=== PATIENT | female | born 1935 | race Caucasian/White ===

== ENCOUNTER 2017-12-31 00:27 | Inpatient (IN) ==
[2017-12-31] MEDS ORDERED: DUONEB 0.5 MG/3 MG NEB ONE (00:34)
--- NOTE | 2017-12-31 00:36 | DR.SOBA ---
HPI Time Seen Time Seen by Provider: 12/31/17 00:31 Complaints Chief Complaint:: Elderly female NH resident sent over to the ED for evaluation as she was noted in respiratory distress. Her O2 sat was reported in 80's. Upon arrival, she was placed on supplemental o2 and was suctioned. Her sat is about 97 Reviewed Nurses Notes Reviewed: Yes Source History Provided: [facility] Past Medical History: COPD, Coronary Artery Disease, Dementia, Hypertension and PA Past Surgical History: Yes Surgical History: Ortho Surgery Social History Do you use any recreational Drugs:: No ROS Review of Systems Constitutional: No Symptoms Reported Eyes: No Symptoms Reported ENTM: No Symptoms Reported Respiratoy: Short of Breath Cardiovascular: No Symptoms Reported Gastrointestinal/Abdominal: No Symptoms Reported Neurological: No Symptoms Reported Musculoskeletal: No Symptoms Reported Integumentary: No Symptoms Reported Hematologic/Lymphatic: No Symptoms Reported Endocrine: No Symptoms Reported Psychiatric: No Symptoms Reported All Other Systems: Reviewed and Negative PE Vital Signs Vitals: Temperature 98.7 F Pulse Rate [Left Brachial] 97 Pulse Rate 100 Respiratory Rate 24 Blood Pressure [Right Arm] 152/71 Blood Pressure 174/78 O2 Sat by Pulse Oximetry 98 General Limitations: No Limitations General Appearance: Alert and In Distress Head Head Exam: Normal Inspection and Atraumatic Eyes Eye exam: Normal Appearance and EOMI ENT ENT Exam: Normal Exam and Mucous Membranes Moist Neck Neck Exam: Normal Inspection and Full ROM Chest Chest Inspection: Normal Inspection and Symmetric Chest Wall Rise Respiratory Respiratory Exam: Respiratory Distress Respiratory Exam: Bilateral: Rhonchi, Bilateral: Crackles and Bilateral: Decreased Breath Sounds Cardiovascular Cardiovascular Exam: Regular Rate, Normal Rhythm, Normal Heart Sounds, +S1 and +S2 Abdominal Exam Abdominal Exam: Normal Inspection, Normal Bowel Sounds and Soft Extremities Extremities Exam: Other (S/P Rt. AKA) Back Back Exam: Normal Inspection Neurologic Neurological Exam: Alert Psychiatric Psychiatric Exam: Normal Affect Skin Skin Exam: Warm MDM Differential Diagnosis Differential Diagnosis: Anxiety, CHF, COPD, Pneumonia and Respiratory Failure COURSE Reevaluation 1st: Improved ROR Labs Reviewed Result Diagrams: 12/31/17 00:47 12/31/17 00:47 Laboratory: 12/31/17 00:48 Sputum - Expectorated Sputum - Final WBC 12.3 X10^3/uL (3.6-10.0) H 12/31/17 00:47 RBC 4.61 X10^6/uL (3.5-5.4) 12/31/17 00:47 Hgb 13.1 g/dL (12.0-16.0) 12/31/17 00:47 Hct 39.8 % (36.0-47.0) 12/31/17 00:47 MCV 86.4 fL (80.0-100.0) 12/31/17 00:47 MCH 28.5 pg (27.0-34.0) 12/31/17 00:47 MCHC 33.0 g/dL (33.0-35.0) 12/31/17 00:47 RDW 15.7 % (11.6-16.5) 12/31/17 00:47 Plt Count 192 X10^3/uL (150.0-450.0) 12/31/17 00:47 MPV 8.5 fL (7.4-11.0) 12/31/17 00:47 Neut % (Auto) 73.1 % (42.0-75.0) 12/31/17 00:47 Lymph % (Auto) 14.3 % (21.0-51.0) L 12/31/17 00:47 [place] % (Auto) 11.5 % (0.0-13.0) 12/31/17 00:47 Eos % (Auto) 0.5 % (0.9-2.9) L 12/31/17 00:47 Baso % (Auto) 0.6 % (0.2-1.0) 12/31/17 00:47 Neut # (Auto) 9.0 x10^3/uL (2.2-4.8) H 12/31/17 00:47 Lymph # (Auto) 1.8 X10^3/uL (1.3-2.9) 12/31/17 00:47 [place] # (Auto) 1.4 x10^3/uL (0.3-0.8) H 12/31/17 00:47 Eos # (Auto) 0.1 x10^3/uL (0.0-0.2) 12/31/17 00:47 Baso # (Auto) 0.1 X10^3/uL (0.0-0.1) 12/31/17 00:47 Absolute Nucleated RBC 0.0 /100WBC 11/18/18 00:47 INR Target Range - 12/31/17 00:47 INR 0.98 (0.8-1.3) 18 00:47 Sodium 139 mmol/L (136-145) 1818 00:47 Corrected Sodium 140 mmol/L (136-145) 18 00:47 Potassium 3.8 mmol/L (3.5-5.1) 12/31/17 00:47 Chloride 102 mmol/L (98-107) 12/31/17 00:47 Carbon Dioxide 27.4 mmol/L (21-32) 12/31/17 00:47 BUN 19 mg/dL (7-18) H 12/31/17 00:47 Creatinine 0.54 mg/dL (0.55-1.02) L 1118 00:47 Est GFR (MDRD) Af Amer > 60 (>60) 12/31/17 00:47 Est GFR (MDRD) Non-Af > 60 (>60) 12/31/17 00:47 Glucose 138 mg/dL (65-99) H 12/31/17 00:47 Calcium 8.5 mg/dL (8.5-10.1) 12/31/17 00:47 Corrected Calcium 9.1 mg/dL (8.5-10.1) 12/31/17 00:47 Total Bilirubin 0.40 mg/dL (0.2-1.0) 12/31/17 00:47 AST 30 Units/L (15-37) 12/31/17 00:47 ALT 23 Units/L (12-78) 12/31/17 00:47 Alkaline Phosphatase 96 Units/L (46-116) 12/31/17 00:47 Total Protein 8.1 g/dL (6.4-8.2) 18 00:47 Albumin 3.3 g/dL (3.4-5.0) L 12/31/17 00:47 Globulin 4.8 g/dL (2.5-4.5) H 18 00:47 Albumin/Globulin Ratio 0.7 Ratio (1.1-2.1) L 111818 00:47 Other Results Comments: Radiologist report on CXR: Interstitial opacities and paulette- bronchial thickening within the RLL, consistent with pneumonia. COPD. Stable cardiomegaly EKG Rate: 102 [place]: Normal Rhythm: ST Block: None Hypertrophy: None ST: Normal Diagnosis Discharge Problem: Nosocomial pneumonia Respiratory failure with hypoxia Qualifiers: Chronicity: acute Qualified Code(s): J96.01 - Acute respiratory failure with hypoxia COPD (chronic obstructive pulmonary disease) Qualifiers: COPD type: COPD with acute lower respiratory infection Qualified Code(s): J44.0 - Chronic obstructive pulmonary disease with acute lower respiratory infection
--- NOTE | 2017-12-31 00:54 | RAD ---
AP chest Indication: Dyspnea Comparison: 12/15/2017 Findings: Increasing interstitial opacities and peribronchial thickening within the right lower lobe consistent with right lower lobe pneumonia. Remaining lungs demonstrate coarsened interstitium hyperexpansion lungs and lucency within the upper lobes consistent with moderate COPD No effusion or pneumothorax. Heart size is enlarged, unchanged. Moderate calcified atherosclerotic disease of the aortic arch. Diffuse osteopenia without acute osseous abnormality identified. Impression: 1. Increased interstitial opacities and peribronchial thickening within the right lower lobe is most consistent with pneumonia; however, clinical correlation is needed as aspiration is also a consideration. 2. COPD. 3. Stable cardiomegaly. Reported By:
[2017-12-31 00:57] LABS: BASOPHILS # (AUTO) 0.1 X10^3/uL (0.0-0.1); BASOPHILS % (AUTO) 0.6 % (0.2-1.0); EOSINOPHILS # (AUTO) 0.1 x10^3/uL (0.0-0.2); EOSINOPHILS % (AUTO) 0.5 % (0.9-2.9); HEMATOCRIT 39.8 % (36.0-47.0); HEMOGLOBIN 13.1 g/dL (12.0-16.0); LYMPHOCYTES # (AUTO) 1.8 X10^3/uL (1.3-2.9); LYMPHOCYTES % (AUTO) 14.3 % (21.0-51.0); MEAN CORPUSCULAR HEMOGLOBIN 28.5 pg (27.0-34.0); MEAN CORPUSCULAR VOLUME 86.4 fL (80.0-100.0); MEAN PLATELET VOLUME 8.5 fL (7.4-11.0); MONOCYTES # (AUTO) 1.4 x10^3/uL (0.3-0.8); MONOCYTES % (AUTO) 11.5 % (0.0-13.0); NEUTROPHILS % (AUTO) 73.1 % (42.0-75.0); PLATELET COUNT 192 X10^3/uL (150.0-450.0); RED BLOOD COUNT 4.61 X10^6/uL (3.5-5.4); RED CELL DISTRIBUTION WIDTH 15.7 % (11.6-16.5); WHITE BLOOD COUNT 12.3 X10^3/uL (3.6-10.0)
[2017-12-31 01:06] LABS: ALANINE AMINOTRANSFERASE 23 Units/L (12-78); ALBUMIN 3.3 g/dL (3.4-5.0); ALKALINE PHOSPHATASE 96 Units/L (46-116); ASPARTATE AMINO TRANSFERASE 30 Units/L (15-37); BLOOD UREA NITROGEN 19 mg/dL (7-18); CALCIUM 8.5 mg/dL (8.5-10.1); CARBON DIOXIDE 27.4 mmol/L (21-32); CHLORIDE 102 mmol/L (98-107); COR CA(FOR HYPOALB) 9.1 mg/dL (8.5-10.1); COR NA(FOR HYPERGLY) 140 mmol/L (136-145); CREATININE 0.54 mg/dL (0.55-1.02); SODIUM 139 mmol/L (136-145); TOTAL PROTEIN 8.1 g/dL (6.4-8.2); eGFR NON BLACK RACES > 60 (>60)
[2017-12-31] MEDS ORDERED: VANCOMYCIN HCL 1 GM VIAL 1 G in D5W 250 ML IV 250 ML IV ONE (01:38)
[2017-12-31] MEDS ORDERED: ZOSYN VIAL 2.25 GRAMS 2.25 G in NS 100 ML IV + SPIKE MINIBAG* 100 ML IV ONE (01:42)
[2017-12-31] MEDS ORDERED: NS 1/2 1000 ML IV 1,000 ML IV ONE ×2 (03:36→17:41)
[2017-12-31] MEDS: NS 1/2 1000 ML IV 1,000 ML IV SCH ×2 (03:51→17:44)
[2017-12-31] MEDS ORDERED: DUONEB 0.5 MG/3 MG NEB SCH (05:00)
[2017-12-31] MEDS: DUONEB 0.5 MG/3 MG NEB SCH ×5 (05:05→20:52)
[2017-12-31 05:38] LABS: BASOPHILS % (AUTO) 0.2 % (0.2-1.0); EOSINOPHILS % (AUTO) 0.2 % (0.9-2.9); HEMATOCRIT 35.6 % (36.0-47.0); HEMOGLOBIN 11.8 g/dL (12.0-16.0); LYMPHOCYTES % (AUTO) 9.3 % (21.0-51.0); MEAN CORPUSCULAR HGB CONC 33.2 g/dL (33.0-35.0); MEAN CORPUSCULAR VOLUME 87.3 fL (80.0-100.0); MEAN PLATELET VOLUME 8.6 fL (7.4-11.0); MONOCYTES # (AUTO) 1.5 x10^3/uL (0.3-0.8); MONOCYTES % (AUTO) 14.3 % (0.0-13.0); NEUTROPHILS # (AUTO) 8.2 x10^3/uL (2.2-4.8); PLATELET COUNT 164 X10^3/uL (150.0-450.0); RED BLOOD COUNT 4.08 X10^6/uL (3.5-5.4); RED CELL DISTRIBUTION WIDTH 15.5 % (11.6-16.5); WHITE BLOOD COUNT 10.8 X10^3/uL (3.6-10.0)
[2017-12-31 05:53] LABS: ALANINE AMINOTRANSFERASE 20 Units/L (12-78); ALBUMIN 2.9 g/dL (3.4-5.0); ALKALINE PHOSPHATASE 83 Units/L (46-116); ASPARTATE AMINO TRANSFERASE 25 Units/L (15-37); BLOOD UREA NITROGEN 19 mg/dL (7-18); CALCIUM 8.4 mg/dL (8.5-10.1); CARBON DIOXIDE 26.1 mmol/L (21-32); CHLORIDE 103 mmol/L (98-107); COR CA(FOR HYPOALB) 9.3 mg/dL (8.5-10.1); COR NA(FOR HYPERGLY) 141 mmol/L (136-145); CREATININE 0.62 mg/dL (0.55-1.02); SODIUM 140 mmol/L (136-145); TOTAL PROTEIN 7.2 g/dL (6.4-8.2); eGFR NON BLACK RACES > 60 (>60)
[2017-12-31] MEDS: ZOSYN VIAL 4.5 GRAMS 4.5 G in NS 100 ML IV + SPIKE MINIBAG* 100 ML IV SCH ×3 (05:59→21:02)
[2017-12-31] MEDS ORDERED: MORPHINE SULFATE INJ 2 MG INJ IVP PRN (07:46)
[2017-12-31] MEDS ORDERED: TYLENOL SUPP 650 MG PR PRN (07:49)
[2017-12-31] MEDS ORDERED: ZyrTEC TAB 10 MG PO SCH (09:00)
[2017-12-31] MEDS ORDERED: LEXAPRO PO SCH (09:00)
[2017-12-31] MEDS: LEVAQUIN PREMIX IV 750 MG 750 MG/150 ML BAG IV SCH (09:30)
[2017-12-31] MEDS: COLACE CAP 100 MG PO SCH ×2 (09:35→20:00)
[2017-12-31] MEDS: ROBITUSSIN DM PO SCH ×4 (09:35→20:00)
[2017-12-31] MEDS: COREG TAB 3.125 MG PO SCH ×2 (09:35→13:29)
[2017-12-31] MEDS: ZESTRIL TAB 10 MG PO SCH ×2 (09:35→13:28)
[2017-12-31] MEDS: MIRALAX POWDER (1 DOSE 17 G) PO SCH (09:36)
[2017-12-31] MEDS: PLAVIX PO SCH ×2 (09:36→13:29)
[2017-12-31 10:45] LABS: BILIRUBIN,URINE NEGATIVE (NEGATIVE); BLOOD/HEMOGLOBIN,URINE 4+ (NEGATIVE); GLUCOSE, URINE NEGATIVE (NEGATIVE); KETONES,URINE NEGATIVE (NEGATIVE); LEUKOCYTE ESTERASE ,URINE 2+ (NEGATIVE); NITRITES,URINE NEGATIVE (NEGATIVE); PH,URINE 6.5 (5.0 - 8.0); PROTEIN,URINE 2+ (NEGATIVE); UROBILINOGEN,URINE NORMAL (NORMAL)
[2017-12-31 10:57] LABS: APPEARANCE,URINE CLOUDY (CLEAR); COLOR,URINE YELLOW (YELLOW)
[2017-12-31 10:58] LABS: AMORPHOUS SEDIMENT,UR 1+ /HPF (NEGATIVE); BACTERIA,URINE 1+ /HPF (NEGATIVE); SQUAMOUS EPITHELIAL CELL,UR FEW /HPF (NEGATIVE)
[2017-12-31] MEDS ORDERED: VASOTEC INJ 2.5 MG VIAL IVP PRN (12:39)
[2017-12-31] MEDS: PATIENT'S HOME MEDICATION (Cran-Vitc-Mannose-Fos-Bromeln [Uti-Stat] 30 ML) PO SCH (20:00)
[2018-01-01] MEDS: DUONEB 0.5 MG/3 MG NEB SCH ×6 (00:49→20:05)
[2018-01-01] MEDS ORDERED: NS 1/2 1000 ML IV 1,000 ML IV ONE (05:16)
[2018-01-01] MEDS: ZOSYN VIAL 4.5 GRAMS 4.5 G in NS 100 ML IV + SPIKE MINIBAG* 100 ML IV SCH ×3 (05:29→23:17)
[2018-01-01 05:34] LABS: BASOPHILS % (AUTO) 0.3 % (0.2-1.0); EOSINOPHILS # (AUTO) 0.1 x10^3/uL (0.0-0.2); EOSINOPHILS % (AUTO) 1.3 % (0.9-2.9); HEMATOCRIT 30.6 % (36.0-47.0); HEMOGLOBIN 10.1 g/dL (12.0-16.0); LYMPHOCYTES % (AUTO) 11.8 % (21.0-51.0); MEAN CORPUSCULAR HEMOGLOBIN 28.5 pg (27.0-34.0); MEAN CORPUSCULAR HGB CONC 33.1 g/dL (33.0-35.0); MEAN PLATELET VOLUME 9.1 fL (7.4-11.0); MONOCYTES # (AUTO) 1.1 x10^3/uL (0.3-0.8); MONOCYTES % (AUTO) 12.6 % (0.0-13.0); NEUTROPHILS # (AUTO) 6.6 x10^3/uL (2.2-4.8); PLATELET COUNT 141 X10^3/uL (150.0-450.0); RED BLOOD COUNT 3.56 X10^6/uL (3.5-5.4); RED CELL DISTRIBUTION WIDTH 15.8 % (11.6-16.5); WHITE BLOOD COUNT 8.9 X10^3/uL (3.6-10.0)
[2018-01-01 05:49] LABS: ALANINE AMINOTRANSFERASE 16 Units/L (12-78); ALBUMIN 2.3 g/dL (3.4-5.0); ALKALINE PHOSPHATASE 68 Units/L (46-116); ASPARTATE AMINO TRANSFERASE 21 Units/L (15-37); BLOOD UREA NITROGEN 17 mg/dL (7-18); CALCIUM 7.9 mg/dL (8.5-10.1); CARBON DIOXIDE 24.6 mmol/L (21-32); CHLORIDE 103 mmol/L (98-107); COR CA(FOR HYPOALB) 9.3 mg/dL (8.5-10.1); CREATININE 0.58 mg/dL (0.55-1.02); MAGNESIUM 1.7 mg/dL (1.7-2.9); SODIUM 137 mmol/L (136-145); TOTAL PROTEIN 6.1 g/dL (6.4-8.2); eGFR NON BLACK RACES > 60 (>60)
[2018-01-01] MEDS: NS 1/2 1000 ML IV 1,000 ML IV SCH (06:02)
[2018-01-01] MEDS ORDERED: K-RIDER 10 MEQ/NS 100 ML 10 MEQ/100 ML BAG IV ONE (06:21)
--- NOTE | 2018-01-01 06:26 | RAD ---
HISTORY: Cough, congestion, fever Study: Chest AP portable Comparison: 12/31/2017, 12/15/2017 Findings: The heart remains enlarged and unchanged from the prior examination. No congestive heart failure is noted. The aorta is calcified. The lungs are hyperinflated. Diffuse interstitial lung changes are again identified slightly more prominent in the right lower lobe in the remainder of the lung [place]ura. This is unchanged when compared with the prior examination no alveolar infiltrates or pleural effusions are identified. The bony thorax is unremarkable. IMPRESSION: Moderate cardiomegaly without congestive heart failure COPD with interstitial lung disease unchanged Reported By:
[2018-01-01] MEDS ORDERED: LEXAPRO ONE (08:02)
[2018-01-01] MEDS: LEVAQUIN PREMIX IV 750 MG 750 MG/150 ML BAG IV SCH (08:13)
[2018-01-01] MEDS: ZESTRIL TAB 10 MG PO SCH (08:18)
[2018-01-01] MEDS: LEXAPRO PO SCH (08:20)
[2018-01-01] MEDS: COLACE CAP 100 MG PO SCH ×2 (08:21→20:34)
[2018-01-01] MEDS: PLAVIX PO SCH (08:22)
[2018-01-01] MEDS: ROBITUSSIN DM PO SCH ×4 (08:23→20:34)
[2018-01-01] MEDS: MIRALAX POWDER (1 DOSE 17 G) PO SCH (08:26)
[2018-01-01] MEDS: PATIENT'S HOME MEDICATION (Cran-Vitc-Mannose-Fos-Bromeln [Uti-Stat] 30 ML) PO SCH ×2 (09:54→20:34)
[2018-01-01] MEDS: COREG TAB 3.125 MG PO SCH (10:32)
[2018-01-01] MEDS: SOLU-Medrol 40 MG VIAL IVP SCH ×3 (10:37→21:40)
[2018-01-01] MEDS ORDERED: MICRO K EXTEN CAP 10 MEQ PO PRN (11:07)
[2018-01-01] MEDS ORDERED: POTASSIUM CHL 40 MEQ/NS 0.45% 500 ML IV PRN (11:07)
[2018-01-01] MEDS ORDERED: POTASSIUM CHLORIDE LIQ 20 MEQ UDC PO PRN (11:07)
[2018-01-01] MEDS ORDERED: K-RIDER 10 MEQ/NS 100 ML 10 MEQ/100 ML BAG IV PRN (11:07)
[2018-01-01] MEDS ORDERED: POTASSIUM CHL 60 MEQ/NS 0.45% 500 ML IV PRN (11:07)
[2018-01-01] MEDS ORDERED: KLOR-CON PO PRN (11:07)
[2018-01-01] MEDS: MUCOMYST 20% 200 MG/ML NEB SCH ×3 (12:05→20:05)
[2018-01-01] MEDS: PULMICORT NEB TX 0.5 MG NEB SCH ×2 (12:05→20:05)
[2018-01-01] MEDS ORDERED: XANAX PO NR (15:00)
[2018-01-01] MEDS: MAGNESIUM SULFATE 1 GRAM/100 mL PREMIX 1 GM/100 ML BAG IV PRN ×2 (15:57→17:01)
--- NOTE | 2018-01-01 19:45 | PCM.PROG ---
Progress Note - Progress Note for Day of Date of Exam: 01/01/18 - Subjective Subjective: IS BEING TREATED FOR PNEUMONIA AND RESPIRATORY DISTRESS. SHE IS [facility]. HER OXYGEN SATURATIONS REPORTEDLY DROPPED INTO THE 80S ON ROOM AIR PRIOR TO ARRIVAL. SHE IS LYING IN BED WITH EYES CLOSED ON MORNING ROUNDS. SHE AWAKENS EASILY TO VERBAL STIMULI. WHEN SPOKEN TO, SHE ANSWERS INAPPROPRIATELY AND IS NOT ORIENTED TO SURROUNDINGS. SHE IS NOTED WITH A PRODUCTIVE COUGH. ON EXAMINATION, HEART IS REGULAR IN RATE AND RHYTHM. BILATERAL LUNGS ARE NOTED WITH SCATTERED WHEEZING AND RHONCHI THROUGHOUT. ABDOMEN IS ROUND, SOFT, AND NON-TENDER WITH NORMAL BOWEL SOUNDS NOTED IN ALL QUADRANTS. HER VITALS THIS MORNING ARE 99.2-88-20-94%-110/53. LABS WERE OBTAINED. ABNORMAL LAB VALUES INCLUDE THE FOLLOWING: HGB 10.1, HCT 30.6, POTASSIUM 3.4, GLUCOSE 110, CALCIUM 7.9, TOTAL PROTEIN 6.1, ALBUMIN 2.3. TODAYS CHEST XRAY REVEALS: Moderate cardiomegaly without congestive heart failure. COPD with interstitial lung disease unchanged. SHE IS CURRENTLY RECEIVING LEVAQUIN 750MG IV DAILY, ZOSYN 4.5G IV TID, IV FLUIDS, AND DUONEBS. TODAY, WE WILL DISCONTINUE THE IV FLUIDS AND START SOLU-MEDROL 40MG IV TID, INCREASE DUONEBS TO TWO TREATMENTS QID, AND ADD PULMICORT TX BID. WE WILL OBTAIN AN ECHOCARDIOGRAM. OTHERWISE, WE WILL FOLLOW UP WITH AM LABS AND CONTINUE TO MONITOR. - Past Medical Family Social History Past Med/Fam/Surg Hx: No changes since H&P Allergies: Allergies codeine Allergy (Verified 12/09/17 20:38) - Review of Systems ROS: No change since H&P - Vital Signs and I&O's Vital Signs: Temperature 98.5 F Pulse Rate [Left Brachial] 89 Pulse Rate 88 Respiratory Rate 18 Blood Pressure [Left Arm] 124/59 Blood Pressure [Right Arm] 110/53 Blood Pressure 174/78 O2 Sat by Pulse Oximetry 93 Intake and Output: Intake & Output 12/30/17 12/31/17 01/01/18 01/02/18 11:59 11:59 11:59 11:59 Intake Total 2906 / 2906 360 / 360 Output Total 450 / 450 1200 / 1200 Balance 2456 / 2456 -840 / -840 - Physical Exam Oriented: Not Oriented Eyes: Normal Ear: Normal Nose: Normal Throat: Normal Respiratory: Generalized, Diminished, Wheezes, Rhonchi Cardiovascular: Normal. negative: S3, S4, Murmur, Edema : Normal Auscultation: Bowel Sounds: Normal Palpation: Normal Tenderness: Normal Skin: Normal Musculoskeletal: Normal Psychiatric: Normal Mood Description: Calm Affect: Normal Speech Pattern: Clear, Appropriate - Laboratory and Diagnostics Result Diagrams: 01/01/18 04:43 01/01/18 04:43 Labs: 12/31/17 10:35 Urine,[place] Urine Culture - Preliminary 12/31/17 00:48 Sputum - Expectorated Sputum Sputum Culture - Preliminary 12/31/17 00:48 Sputum - Expectorated Sputum - Final Laboratory WBC 8.9 X10^3/uL (3.6-10.0) 01/01/18 04:43 RBC 3.56 X10^6/uL (3.5-5.4) 01/01/18 04:43 Hgb 10.1 g/dL (12.0-16.0) L 01/01/18 04:43 Hct 30.6 % (36.0-47.0) L 01/01/18 04:43 MCV 86.0 fL (80.0-100.0) 01/01/18 04:43 MCH 28.5 pg (27.0-34.0) 01/01/18 04:43 MCHC 33.1 g/dL (33.0-35.0) 01/01/18 04:43 RDW 15.8 % (11.6-16.5) 01/01/18 04:43 Plt Count 141 X10^3/uL (150.0-450.0) L 01/01/18 04:43 MPV 9.1 fL (7.4-11.0) 01/01/18 04:43 Neut % (Auto) 74.0 % (42.0-75.0) 01/01/18 04:43 Lymph % (Auto) 11.8 % (21.0-51.0) L 01/01/18 04:43 [place] % (Auto) 12.6 % (0.0-13.0) 01/01/18 04:43 Eos % (Auto) 1.3 % (0.9-2.9) 01/01/18 04:43 Baso % (Auto) 0.3 % (0.2-1.0) 01/01/18 04:43 Neut # (Auto) 6.6 x10^3/uL (2.2-4.8) H 01/01/18 04:43 Lymph # (Auto) 1.0 X10^3/uL (1.3-2.9) L 01/01/18 04:43 [place] # (Auto) 1.1 x10^3/uL (0.3-0.8) H 01/01/18 04:43 Eos # (Auto) 0.1 x10^3/uL (0.0-0.2) 01/01/18 04:43 Baso # (Auto) 0.0 X10^3/uL (0.0-0.1) 01/01/18 04:43 Absolute Nucleated RBC 0.0 /100WBC 01/01/18 04:43 INR Target Range - 12/31/17 00:47 INR 0.98 (0.8-1.3) 12/31/17 00:47 Sodium 137 mmol/L (136-145) 01/01/18 04:43 Corrected Sodium TNP 01/01/18 04:43 Potassium 3.4 mmol/L (3.5-5.1) L 01/01/18 04:43 Chloride 103 mmol/L (98-107) 01/01/18 04:43 Carbon Dioxide 24.6 mmol/L (21-32) 01/01/18 04:43 BUN 17 mg/dL (7-18) 01/01/18 04:43 Creatinine 0.58 mg/dL (0.55-1.02) 01/01/18 04:43 Est GFR (MDRD) Af Amer > 60 (>60) 01/01/18 04:43 Est GFR (MDRD) Non-Af > 60 (>60) 01/01/18 04:43 Glucose 110 mg/dL (65-99) H 01/01/18 04:43 Calcium 7.9 mg/dL (8.5-10.1) L 01/01/18 04:43 Corrected Calcium 9.3 mg/dL (8.5-10.1) 01/01/18 04:43 Magnesium 1.7 mg/dL (1.7-2.9) 01/01/18 04:43 Total Bilirubin 0.50 mg/dL (0.2-1.0) 01/01/18 04:43 AST 21 Units/L (15-37) 01/01/18 04:43 ALT 16 Units/L (12-78) 01/01/18 04:43 Alkaline Phosphatase 68 Units/L (46-116) 01/01/18 04:43 Total Protein 6.1 g/dL (6.4-8.2) L 01/01/18 04:43 Albumin 2.3 g/dL (3.4-5.0) L 01/01/18 04:43 Globulin 3.8 g/dL (2.5-4.5) 01/01/18 04:43 Albumin/Globulin Ratio 0.6 Ratio (1.1-2.1) L 01/01/18 04:43 Specimen Type Catherized urine 12/31/17 10:35 Urine Color Yellow (YELLOW) 12/31/17 10:35 Urine Appearance Cloudy (CLEAR) 12/31/17 10:35 Urine pH 6.5 (5.0 - 8.0) 12/31/17 10:35 Ur Specific [place] 1.015 (1.000-1.030) 12/31/17 10:35 Urine Protein 2+ (NEGATIVE) 12/31/17 10:35 Urine Glucose (UA) Negative (NEGATIVE) 12/31/17 10:35 Urine Ketones Negative (NEGATIVE) 12/31/17 10:35 Urine Occult Blood 4+ (NEGATIVE) 12/31/17 10:35 Urine Nitrite Negative (NEGATIVE) 12/31/17 10:35 Urine Bilirubin Negative (NEGATIVE) 12/31/17 10:35 Urine Urobilinogen Normal (NORMAL) 12/31/17 10:35 Ur Leukocyte Esterase 2+ (NEGATIVE) 12/31/17 10:35 Urine RBC 3-5 /HPF (NONE SEEN) 12/31/17 10:35 Urine WBC Tntc /HPF (NONE SEEN) 12/31/17 10:35 Ur Squamous Epith Cells Few /HPF (NEGATIVE) 12/31/17 10:35 Amorphous Sediment 1+ /HPF (NEGATIVE) 12/31/17 10:35 Urine Bacteria 1+ /HPF (NEGATIVE) 12/31/17 10:35 Ur Culture Indicated? Yes/culture set up 12/31/17 10:35 - Plan (1) Pneumonia Status: Acute Qualifiers: Pneumonia type: due to unspecified organism Laterality: right Lung location: lower lobe of lung Qualified Code(s): J18.1 - Lobar pneumonia, unspecified organism Plan: PNEUMONIA PROTOCOL, FORTAZ, LEVAQUIN, RESPIRATORY TREATMENTS, SOLU-MEDROL 40MG IV Q8H, CONTINUE TO MONITOR (2) Respiratory failure with hypoxia Status: Acute Qualifiers: Chronicity: acute Qualified Code(s): J96.01 - Acute respiratory failure with hypoxia Plan: RESPIRATORY TREATMENTS, SUPPLEMENTAL OXYGEN, CONTINUE TO MONITOR.
[2018-01-01] MEDS ORDERED: NS 1000 ML 1,000 ML ONE (22:45)
[2018-01-02] MEDS: DUONEB 0.5 MG/3 MG NEB SCH ×6 (01:40→21:09)
[2018-01-02] MEDS: ZOSYN VIAL 4.5 GRAMS 4.5 G in NS 100 ML IV + SPIKE MINIBAG* 100 ML IV SCH ×3 (05:28→21:10)
[2018-01-02] MEDS: SOLU-Medrol 40 MG VIAL IVP SCH ×3 (05:28→21:10)
[2018-01-02 05:39] LABS: BASOPHILS % (AUTO) 0.5 % (0.2-1.0); HEMATOCRIT 31.7 % (36.0-47.0); HEMOGLOBIN 10.4 g/dL (12.0-16.0); LYMPHOCYTES # (AUTO) 0.5 X10^3/uL (1.3-2.9); LYMPHOCYTES % (AUTO) 6.1 % (21.0-51.0); MEAN CORPUSCULAR HEMOGLOBIN 28.3 pg (27.0-34.0); MEAN CORPUSCULAR HGB CONC 32.8 g/dL (33.0-35.0); MEAN CORPUSCULAR VOLUME 86.1 fL (80.0-100.0); MEAN PLATELET VOLUME 9.3 fL (7.4-11.0); MONOCYTES # (AUTO) 0.3 x10^3/uL (0.3-0.8); MONOCYTES % (AUTO) 4.2 % (0.0-13.0); NEUTROPHILS # (AUTO) 6.8 x10^3/uL (2.2-4.8); NEUTROPHILS % (AUTO) 89.2 % (42.0-75.0); PLATELET COUNT 173 X10^3/uL (150.0-450.0); RED BLOOD COUNT 3.68 X10^6/uL (3.5-5.4); RED CELL DISTRIBUTION WIDTH 15.8 % (11.6-16.5)
[2018-01-02 05:50] LABS: ALANINE AMINOTRANSFERASE 20 Units/L (12-78); ALBUMIN 2.1 g/dL (3.4-5.0); ALKALINE PHOSPHATASE 75 Units/L (46-116); ASPARTATE AMINO TRANSFERASE 26 Units/L (15-37); BLOOD UREA NITROGEN 19 mg/dL (7-18); CALCIUM 8.2 mg/dL (8.5-10.1); CARBON DIOXIDE 20.7 mmol/L (21-32); CHLORIDE 107 mmol/L (98-107); COR CA(FOR HYPOALB) 9.7 mg/dL (8.5-10.1); COR NA(FOR HYPERGLY) 140 mmol/L (136-145); CREATININE 0.57 mg/dL (0.55-1.02); SODIUM 138 mmol/L (136-145); TOTAL PROTEIN 6.5 g/dL (6.4-8.2); eGFR NON BLACK RACES > 60 (>60)
[2018-01-02 06:20] LABS: PLATELET MORPHOLOGY COMMENT NORMAL (NORMAL); WHITE BLOOD COUNT 8.2 X10^3/uL (3.6-10.0)
[2018-01-02] MEDS ORDERED: LEXAPRO ONE (08:15)
[2018-01-02] MEDS: LEVAQUIN PREMIX IV 750 MG 750 MG/150 ML BAG IV SCH (08:54)
[2018-01-02] MEDS: COLACE CAP 100 MG PO SCH ×2 (08:55→21:09)
[2018-01-02] MEDS: ROBITUSSIN DM PO SCH ×4 (08:55→21:10)
[2018-01-02] MEDS: ZESTRIL TAB 10 MG PO SCH (08:55)
[2018-01-02] MEDS: LEXAPRO PO SCH (08:55)
[2018-01-02] MEDS: PLAVIX PO SCH (08:55)
[2018-01-02] MEDS: MIRALAX POWDER (1 DOSE 17 G) PO SCH (08:56)
[2018-01-02] MEDS: COREG TAB 3.125 MG PO SCH (08:56)
[2018-01-02] MEDS: MUCOMYST 20% 200 MG/ML NEB SCH ×4 (09:04→21:09)
[2018-01-02] MEDS: PULMICORT NEB TX 0.5 MG NEB SCH ×2 (09:05→21:09)
--- NOTE | 2018-01-02 10:29 | RAD ---
Reported By: ORY: Cough congestion fever, history of coronary artery disease and COPD Study: One-view chest Comparison: One view chest 2017 and 12/31/2017 as well as older exam 01/09/2018 Technique: AP portable upright chest Findings: Soft tissues and bony thorax are normal. The heart size configuration airway and vascularity are normal. There are chronic changes of fibrosis. There is no interval change from 01/01 mild improvement in the interstitial markings in the right lung base compared to 12/31 the Timothy B-lines were present previously are less prominent on current study. Chest history turn to its more normal state that was seen on 12/09/2017. IMPRESSION: 1. Chronic changes of fibrosis but no acute infiltrates or effusions. There is very minimal improvement in the interstitial markings when compared to the film of 12/31/2017 with mild improvement in the amount of [place] B-lines compared to that date.
--- NOTE | 2018-01-02 11:51 | PCM.PROG ---
Progress Note - Progress Note for Day of Date of Exam: 01/02/18 - Subjective Subjective: IS BEING TREATED FOR PNEUMONIA AND RESPIRATORY DISTRESS. SHE IS LYING IN BED WITH EYES CLOSED ON MORNING ROUNDS. SHE AWAKENS EASILY TO VERBAL STIMULI. SHE CONTINUES TO BE CONFUSED AND DISORIENTED. SHE CONTINUES WITH A PERSISTENT, PRODUCTIVE COUGH. ON EXAMINATION, HEART IS REGULAR IN RATE AND RHYTHM. BILATERAL LUNGS ARE NOTED WITH SCATTERED WHEEZING AND RHONCHI THROUGHOUT. ABDOMEN IS ROUND, SOFT, AND NON-TENDER WITH NORMAL BOWEL SOUNDS NOTED IN ALL QUADRANTS. HER VITALS THIS MORNING ARE 97.5-76-28-96%-113/61. LABS WERE OBTAINED. ABNORMAL LAB VALUES INCLUDE THE FOLLOWING: HGB 10.4, HCT 31.7, CARBON DIOXIDE 20.7, BUN 19, GLUCOSE 174, CALCIUM 8.2, ALBUMIN 2.1. URINE CULTURE REPORTS GROWTH OF PSEUDOMONAS AERUGINOSA. SPUTUM CULTURE REPORTS GROWTH OF KLEBSIELLA PNEUMONIAE. BOTH ARE SENSITIVE TO THE ANTIBIOTICS THAT SHE IS CURRENTLY RECEIVING. TODAYS CHEST XRAY REVEALS: Chronic changes of fibrosis but no acute infiltrates or effusions. There is very minimal improvement in the i nterstitial markings when compared to the film of 12/31/2017 with mild improvement in the amount of [place] B-lines compared to that date. SHE IS CURRENTLY RECEIVING LEVAQUIN 750MG IV DAILY, ZOSYN 4.5G IV TID, IV FLUIDS, SOLU- MEDROL 40MG IV Q8H, AND RESPIRATORY TREATMENTS. WE WILL CONTINUE WITH CURRENT PLAN OF CARE TODAY. OTHERWISE, WE WILL FOLLOW UP WITH AM LABS AND CONTINUE TO MONITOR. - Past Medical Family Social History Past Med/Fam/Surg Hx: No changes since H&P Allergies: Allergies codeine Allergy (Verified 12/09/17 20:38) - Review of Systems ROS: No change since H&P - Vital Signs and I&O's Vital Signs: Temperature 97.5 F Pulse Rate [Left Brachial] 76 Pulse Rate 78 Respiratory Rate 28 Blood Pressure [Left Arm] 113/61 Blood Pressure [Right Arm] 110/53 Blood Pressure 174/78 O2 Sat by Pulse Oximetry 95 Intake and Output: Intake & Output 12/30/17 12/31/17 01/01/18 01/02/18 11:59 11:59 11:59 11:59 Intake Total 2906 / 2906 1740 / 1740 Output Total 450 / 450 2500 / 2500 Balance 2456 / 2456 -760 / -760 - Physical Exam Oriented: Not Oriented Eyes: Normal Ear: Normal Nose: Normal Throat: Normal Respiratory: Generalized, Diminished, Wheezes, Rhonchi Cardiovascular: Normal. negative: S3, S4, Murmur, Edema : Normal Auscultation: Bowel Sounds: Normal Palpation: Normal Tenderness: Normal Skin: Normal Musculoskeletal: Normal Psychiatric: Normal Mood Description: Calm Affect: Normal Speech Pattern: Clear, Appropriate - Laboratory and Diagnostics Result Diagrams: 01/02/18 05:05 01/02/18 05:05 Labs: 12/31/17 01:55 Blood Blood Culture - Preliminary 12/31/17 01:49 Blood Blood Culture - Preliminary 12/31/17 00:48 Sputum - Expectorated Sputum Sputum Culture - Preliminary Klebsiella Pneumoniae 12/31/17 00:48 Sputum - Expectorated Sputum - Final 12/31/17 10:35 Urine,[place] Urine Culture - Final Pseudomonas Aeruginosa Laboratory WBC 8.2 X10^3/uL (3.6-10.0) 01/02/18 05:05 RBC 3.68 X10^6/uL (3.5-5.4) 01/02/18 05:05 Hgb 10.4 g/dL (12.0-16.0) L 01/02/18 05:05 Hct 31.7 % (36.0-47.0) L 01/02/18 05:05 MCV 86.1 fL (80.0-100.0) 01/02/18 05:05 MCH 28.3 pg (27.0-34.0) 01/02/18 05:05 MCHC 32.8 g/dL (33.0-35.0) L 01/02/18 05:05 RDW 15.8 % (11.6-16.5) 01/02/18 05:05 Plt Count 173 X10^3/uL (150.0-450.0) 01/02/18 05:05 Plt Count Comment Adequate (ADEQUATE) 01/02/18 05:05 MPV 9.3 fL (7.4-11.0) 01/02/18 05:05 Neut % (Auto) 89.2 % (42.0-75.0) H 01/02/18 05:05 Lymph % (Auto) 6.1 % (21.0-51.0) L 01/02/18 05:05 [place] % (Auto) 4.2 % (0.0-13.0) 01/02/18 05:05 Eos % (Auto) 0.0 % (0.9-2.9) L 01/02/18 05:05 Baso % (Auto) 0.5 % (0.2-1.0) 01/02/18 05:05 Neut # (Auto) 6.8 x10^3/uL (2.2-4.8) H 01/02/18 05:05 Lymph # (Auto) 0.5 X10^3/uL (1.3-2.9) L 01/02/18 05:05 [place] # (Auto) 0.3 x10^3/uL (0.3-0.8) 01/02/18 05:05 Eos # (Auto) 0.0 x10^3/uL (0.0-0.2) 01/02/18 05:05 Baso # (Auto) 0.0 X10^3/uL (0.0-0.1) 01/02/18 05:05 Absolute Nucleated RBC 0.1 /100WBC 01/02/18 05:05 Plt Morphology Comment Normal (NORMAL) 01/02/18 05:05 RBC Morphology Normal (NORMAL) 01/02/18 05:05 INR Target Range - 12/31/17 00:47 INR 0.98 (0.8-1.3) 12/31/17 00:47 Sodium 138 mmol/L (136-145) 01/02/18 05:05 Corrected Sodium 140 mmol/L (136-145) 01/02/18 05:05 Potassium 4.3 mmol/L (3.5-5.1) 01/02/18 05:05 Chloride 107 mmol/L (98-107) 01/02/18 05:05 Carbon Dioxide 20.7 mmol/L (21-32) L 01/02/18 05:05 BUN 19 mg/dL (7-18) H 01/02/18 05:05 Creatinine 0.57 mg/dL (0.55-1.02) 01/02/18 05:05 Est GFR (MDRD) Af Amer > 60 (>60) 01/02/18 05:05 Est GFR (MDRD) Non-Af > 60 (>60) 01/02/18 05:05 Glucose 174 mg/dL (65-99) H 01/02/18 05:05 Calcium 8.2 mg/dL (8.5-10.1) L 01/02/18 05:05 Corrected Calcium 9.7 mg/dL (8.5-10.1) 01/02/18 05:05 Magnesium 1.7 mg/dL (1.7-2.9) 01/01/18 04:43 Total Bilirubin 0.20 mg/dL (0.2-1.0) 01/02/18 05:05 AST 26 Units/L (15-37) 01/02/18 05:05 ALT 20 Units/L (12-78) 01/02/18 05:05 Alkaline Phosphatase 75 Units/L (46-116) 01/02/18 05:05 Total Protein 6.5 g/dL (6.4-8.2) 01/02/18 05:05 Albumin 2.1 g/dL (3.4-5.0) L 01/02/18 05:05 Globulin 4.4 g/dL (2.5-4.5) 01/02/18 05:05 Albumin/Globulin Ratio 0.5 Ratio (1.1-2.1) L 01/02/18 05:05 Specimen Type Catherized urine 12/31/17 10:35 Urine Color Yellow (YELLOW) 12/31/17 10:35 Urine Appearance Cloudy (CLEAR) 12/31/17 10:35 Urine pH 6.5 (5.0 - 8.0) 12/31/17 10:35 Ur Specific [place] 1.015 (1.000-1.030) 12/31/17 10:35 Urine Protein 2+ (NEGATIVE) 12/31/17 10:35 Urine Glucose (UA) Negative (NEGATIVE) 12/31/17 10:35 Urine Ketones Negative (NEGATIVE) 12/31/17 10:35 Urine Occult Blood 4+ (NEGATIVE) 12/31/17 10:35 Urine Nitrite Negative (NEGATIVE) 12/31/17 10:35 Urine Bilirubin Negative (NEGATIVE) 12/31/17 10:35 Urine Urobilinogen Normal (NORMAL) 12/31/17 10:35 Ur Leukocyte Esterase 2+ (NEGATIVE) 12/31/17 10:35 Urine RBC 3-5 /HPF (NONE SEEN) 12/31/17 10:35 Urine WBC Tntc /HPF (NONE SEEN) 12/31/17 10:35 Ur Squamous Epith Cells Few /HPF (NEGATIVE) 12/31/17 10:35 Amorphous Sediment 1+ /HPF (NEGATIVE) 12/31/17 10:35 Urine Bacteria 1+ /HPF (NEGATIVE) 12/31/17 10:35 Ur Culture Indicated? Yes/culture set up 12/31/17 10:35 - Plan (1) Pneumonia Status: Acute Qualifiers: Pneumonia type: due to unspecified organism Laterality: right Lung location: lower lobe of lung Qualified Code(s): J18.1 - Lobar pneumonia, unspecified organism Plan: PNEUMONIA PROTOCOL, FORTAZ, LEVAQUIN, RESPIRATORY TREATMENTS, SOLU-MEDROL 40MG IV Q8H, CONTINUE TO MONITOR (2) Respiratory failure with hypoxia Status: Acute Qualifiers: Chronicity: acute Qualified Code(s): J96.01 - Acute respiratory failure with hypoxia Plan: RESPIRATORY TREATMENTS, SUPPLEMENTAL OXYGEN, CONTINUE TO MONITOR.
[2018-01-02] MEDS: XANAX PO PRN (15:38)
[2018-01-02] MEDS ORDERED: NS 500 ML IV 500 ML IV ONE (20:52)
[2018-01-03] MEDS: XANAX PO PRN ×2 (01:43→20:42)
[2018-01-03 05:19] LABS: BASOPHILS % (AUTO) 0.1 % (0.2-1.0); HEMATOCRIT 29.9 % (36.0-47.0); HEMOGLOBIN 10.1 g/dL (12.0-16.0); LYMPHOCYTES # (AUTO) 0.6 X10^3/uL (1.3-2.9); LYMPHOCYTES % (AUTO) 7.1 % (21.0-51.0); MEAN CORPUSCULAR HGB CONC 33.8 g/dL (33.0-35.0); MEAN CORPUSCULAR VOLUME 85.9 fL (80.0-100.0); MEAN PLATELET VOLUME 8.4 fL (7.4-11.0); MONOCYTES # (AUTO) 0.7 x10^3/uL (0.3-0.8); NEUTROPHILS % (AUTO) 84.8 % (42.0-75.0); PLATELET COUNT 176 X10^3/uL (150.0-450.0); RED BLOOD COUNT 3.48 X10^6/uL (3.5-5.4); RED CELL DISTRIBUTION WIDTH 15.8 % (11.6-16.5); WHITE BLOOD COUNT 8.3 X10^3/uL (3.6-10.0)
[2018-01-03 05:21] LABS: ALANINE AMINOTRANSFERASE 67 Units/L (12-78); ALBUMIN 2.2 g/dL (3.4-5.0); ALKALINE PHOSPHATASE 103 Units/L (46-116); ASPARTATE AMINO TRANSFERASE 84 Units/L (15-37); BLOOD UREA NITROGEN 27 mg/dL (7-18); CALCIUM 8.4 mg/dL (8.5-10.1); CARBON DIOXIDE 25.4 mmol/L (21-32); CHLORIDE 108 mmol/L (98-107); COR CA(FOR HYPOALB) 9.8 mg/dL (8.5-10.1); COR NA(FOR HYPERGLY) 143 mmol/L (136-145); CREATININE 0.63 mg/dL (0.55-1.02); SODIUM 142 mmol/L (136-145); TOTAL PROTEIN 6.3 g/dL (6.4-8.2); eGFR NON BLACK RACES > 60 (>60)
[2018-01-03] MEDS: SOLU-Medrol 40 MG VIAL IVP SCH ×3 (05:29→21:12)
[2018-01-03] MEDS: ZOSYN VIAL 4.5 GRAMS 4.5 G in NS 100 ML IV + SPIKE MINIBAG* 100 ML IV SCH ×3 (05:29→21:12)
[2018-01-03] MEDS: DUONEB 0.5 MG/3 MG NEB SCH ×5 (05:37→21:00)
[2018-01-03 06:12] VITALS: BMI 18.8
[2018-01-03] MEDS ORDERED: LEXAPRO ONE (08:06)
[2018-01-03] MEDS: ZESTRIL TAB 10 MG PO SCH (08:28)
[2018-01-03] MEDS: LEXAPRO PO SCH (08:28)
[2018-01-03] MEDS: PLAVIX PO SCH (08:28)
[2018-01-03] MEDS: COLACE CAP 100 MG PO SCH ×2 (08:29→20:42)
[2018-01-03] MEDS: ROBITUSSIN DM PO SCH ×3 (08:29→20:41)
[2018-01-03] MEDS: COREG TAB 3.125 MG PO SCH (08:29)
[2018-01-03] MEDS: LEVAQUIN PREMIX IV 750 MG 750 MG/150 ML BAG IV SCH (08:29)
[2018-01-03] MEDS: MIRALAX POWDER (1 DOSE 17 G) PO SCH (08:30)
[2018-01-03] MEDS: MUCOMYST 20% 200 MG/ML NEB SCH ×4 (09:11→21:00)
[2018-01-03] MEDS: PULMICORT NEB TX 0.5 MG NEB SCH ×2 (09:11→21:00)
[2018-01-04] MEDS: DUONEB 0.5 MG/3 MG NEB SCH ×6 (01:00→21:19)
[2018-01-04] MEDS: ZOSYN VIAL 4.5 GRAMS 4.5 G in NS 100 ML IV + SPIKE MINIBAG* 100 ML IV SCH ×3 (05:05→22:00)
[2018-01-04] MEDS: SOLU-Medrol 40 MG VIAL IVP SCH (05:06)
[2018-01-04 05:13] LABS: BASOPHILS % (AUTO) 0 % (0.2-1.0); LYMPHOCYTES # (AUTO) 0.6 X10^3/uL (1.3-2.9); LYMPHOCYTES % (AUTO) 8.5 % (21.0-51.0); MEAN CORPUSCULAR HEMOGLOBIN 28.6 pg (27.0-34.0); MEAN CORPUSCULAR HGB CONC 33.5 g/dL (33.0-35.0); MEAN CORPUSCULAR VOLUME 85.6 fL (80.0-100.0); MEAN PLATELET VOLUME 8.3 fL (7.4-11.0); MONOCYTES # (AUTO) 0.6 x10^3/uL (0.3-0.8); MONOCYTES % (AUTO) 8.8 % (0.0-13.0); NEUTROPHILS # (AUTO) 5.8 x10^3/uL (2.2-4.8); NEUTROPHILS % (AUTO) 82.7 % (42.0-75.0); PLATELET COUNT 182 X10^3/uL (150.0-450.0); RED BLOOD COUNT 3.51 X10^6/uL (3.5-5.4); RED CELL DISTRIBUTION WIDTH 15.8 % (11.6-16.5); WHITE BLOOD COUNT 7.1 X10^3/uL (3.6-10.0)
[2018-01-04 05:20] LABS: ALANINE AMINOTRANSFERASE 107 Units/L (12-78); ALBUMIN 2.3 g/dL (3.4-5.0); ALKALINE PHOSPHATASE 98 Units/L (46-116); ASPARTATE AMINO TRANSFERASE 79 Units/L (15-37); BLOOD UREA NITROGEN 25 mg/dL (7-18); CALCIUM 8.1 mg/dL (8.5-10.1); CARBON DIOXIDE 22.8 mmol/L (21-32); CHLORIDE 108 mmol/L (98-107); COR CA(FOR HYPOALB) 9.5 mg/dL (8.5-10.1); COR NA(FOR HYPERGLY) 142 mmol/L (136-145); CREATININE 0.63 mg/dL (0.55-1.02); SODIUM 141 mmol/L (136-145); TOTAL PROTEIN 6.3 g/dL (6.4-8.2); eGFR NON BLACK RACES > 60 (>60)
[2018-01-04] MEDS ORDERED: LEXAPRO ONE (08:22)
[2018-01-04] MEDS: MUCOMYST 20% 200 MG/ML NEB SCH (08:59)
[2018-01-04] MEDS: PULMICORT NEB TX 0.5 MG NEB SCH ×2 (09:00→21:19)
[2018-01-04] MEDS: ROBITUSSIN DM PO SCH ×4 (09:02→20:54)
[2018-01-04] MEDS: LEVAQUIN PREMIX IV 750 MG 750 MG/150 ML BAG IV SCH (09:02)
[2018-01-04] MEDS: COREG TAB 3.125 MG PO SCH (09:03)
[2018-01-04] MEDS: ZESTRIL TAB 10 MG PO SCH (09:03)
[2018-01-04] MEDS: COLACE CAP 100 MG PO SCH ×2 (09:03→20:54)
[2018-01-04] MEDS: MIRALAX POWDER (1 DOSE 17 G) PO SCH (09:03)
[2018-01-04] MEDS: LEXAPRO PO SCH (09:04)
[2018-01-04] MEDS: PLAVIX PO SCH (09:05)
[2018-01-04] MEDS ORDERED: BUTT CREAM (COMPOUND) TOP PRN (09:59)
[2018-01-04] MEDS: XANAX PO PRN ×2 (13:08→20:54)
[2018-01-05] MEDS ORDERED: NS 500 ML IV 500 ML IV ONE (00:14)
[2018-01-05] MEDS: DUONEB 0.5 MG/3 MG NEB SCH ×6 (00:57→21:38)
[2018-01-05 05:27] LABS: BASOPHILS % (AUTO) 0.2 % (0.2-1.0); EOSINOPHILS # (AUTO) 0.1 x10^3/uL (0.0-0.2); HEMATOCRIT 32.3 % (36.0-47.0); HEMOGLOBIN 10.7 g/dL (12.0-16.0); LYMPHOCYTES # (AUTO) 1.3 X10^3/uL (1.3-2.9); LYMPHOCYTES % (AUTO) 15.6 % (21.0-51.0); MEAN CORPUSCULAR HEMOGLOBIN 28.5 pg (27.0-34.0); MEAN CORPUSCULAR HGB CONC 33.1 g/dL (33.0-35.0); MEAN CORPUSCULAR VOLUME 86.2 fL (80.0-100.0); MEAN PLATELET VOLUME 8.1 fL (7.4-11.0); MONOCYTES # (AUTO) 1.1 x10^3/uL (0.3-0.8); NEUTROPHILS # (AUTO) 5.9 x10^3/uL (2.2-4.8); NEUTROPHILS % (AUTO) 70.2 % (42.0-75.0); PLATELET COUNT 194 X10^3/uL (150.0-450.0); RED BLOOD COUNT 3.75 X10^6/uL (3.5-5.4); RED CELL DISTRIBUTION WIDTH 15.8 % (11.6-16.5); WHITE BLOOD COUNT 8.4 X10^3/uL (3.6-10.0)
[2018-01-05 05:38] LABS: ALANINE AMINOTRANSFERASE 85 Units/L (12-78); ALBUMIN 2.2 g/dL (3.4-5.0); ALKALINE PHOSPHATASE 82 Units/L (46-116); ASPARTATE AMINO TRANSFERASE 42 Units/L (15-37); BLOOD UREA NITROGEN 23 mg/dL (7-18); CARBON DIOXIDE 22.7 mmol/L (21-32); CHLORIDE 108 mmol/L (98-107); COR CA(FOR HYPOALB) 9.4 mg/dL (8.5-10.1); CREATININE 0.67 mg/dL (0.55-1.02); SODIUM 142 mmol/L (136-145); eGFR NON BLACK RACES > 60 (>60)
[2018-01-05] MEDS: ZOSYN VIAL 4.5 GRAMS 4.5 G in NS 100 ML IV + SPIKE MINIBAG* 100 ML IV SCH ×3 (05:58→21:46)
[2018-01-05] MEDS: K-DUR TAB 20 MEQ PO PRN (06:09)
[2018-01-05] MEDS ORDERED: NS 250 ML IV 250 ML IV ONE (06:46)
[2018-01-05] MEDS: MAGNESIUM SULFATE 1 GRAM/100 mL PREMIX 1 GM/100 ML BAG IV PRN ×2 (07:00→14:29)
--- NOTE | 2018-01-05 07:18 | RAD ---
HISTORY: Congestion fever Study: Single-view chest Comparison: 01/02/2018 Findings: The trachea is deviated to the left 2nd patient rotation. The cardiac silhouette is stable. Lungs demonstrate stable chronic interstitial changes with interval development of apparent right basilar airspace disease with probable small effusion. Continued follow-up is recommended.. The bony thorax is unremarkable. IMPRESSION: 1. Developing right lower lobe infiltrate with probable small effusion. Continued follow-up is recommended. Reported By:
[2018-01-05] MEDS: PULMICORT NEB TX 0.5 MG NEB SCH ×2 (09:11→21:39)
[2018-01-05] MEDS ORDERED: LEXAPRO ONE (09:19)
[2018-01-05] MEDS: LEVAQUIN PREMIX IV 750 MG 750 MG/150 ML BAG IV SCH (09:42)
[2018-01-05] MEDS: PLAVIX PO SCH (09:43)
[2018-01-05] MEDS: ROBITUSSIN DM PO SCH ×4 (09:43→21:46)
[2018-01-05] MEDS: COREG TAB 3.125 MG PO SCH (09:43)
[2018-01-05] MEDS: COLACE CAP 100 MG PO SCH ×2 (09:43→21:45)
[2018-01-05] MEDS: ZESTRIL TAB 10 MG PO SCH (09:43)
[2018-01-05] MEDS: MIRALAX POWDER (1 DOSE 17 G) PO SCH (09:43)
[2018-01-05] MEDS: LEXAPRO PO SCH (09:43)
[2018-01-05] MEDS ORDERED: LANTISEPTIC TOP PRN (21:29)
[2018-01-06] MEDS ORDERED: DUONEB 0.5 MG/3 MG ONE (01:37)
[2018-01-06] MEDS: DUONEB 0.5 MG/3 MG NEB SCH ×7 (01:40→20:54)
[2018-01-06] MEDS: ZOSYN VIAL 4.5 GRAMS 4.5 G in NS 100 ML IV + SPIKE MINIBAG* 100 ML IV SCH ×3 (05:13→21:18)
[2018-01-06 05:24] LABS: BASOPHILS % (AUTO) 0.3 % (0.2-1.0); EOSINOPHILS # (AUTO) 0.2 x10^3/uL (0.0-0.2); EOSINOPHILS % (AUTO) 3.3 % (0.9-2.9); HEMATOCRIT 32.2 % (36.0-47.0); HEMOGLOBIN 10.6 g/dL (12.0-16.0); LYMPHOCYTES % (AUTO) 15.7 % (21.0-51.0); MEAN CORPUSCULAR HEMOGLOBIN 28.3 pg (27.0-34.0); MEAN CORPUSCULAR HGB CONC 32.8 g/dL (33.0-35.0); MEAN CORPUSCULAR VOLUME 86.3 fL (80.0-100.0); MONOCYTES # (AUTO) 0.7 x10^3/uL (0.3-0.8); MONOCYTES % (AUTO) 10.7 % (0.0-13.0); NEUTROPHILS # (AUTO) 4.4 x10^3/uL (2.2-4.8); PLATELET COUNT 196 X10^3/uL (150.0-450.0); RED BLOOD COUNT 3.73 X10^6/uL (3.5-5.4); RED CELL DISTRIBUTION WIDTH 15.6 % (11.6-16.5); WHITE BLOOD COUNT 6.2 X10^3/uL (3.6-10.0)
[2018-01-06 05:29] LABS: BLOOD UREA NITROGEN 15 mg/dL (7-18); CALCIUM 7.8 mg/dL (8.5-10.1); CARBON DIOXIDE 25.8 mmol/L (21-32); CHLORIDE 109 mmol/L (98-107); CREATININE 0.56 mg/dL (0.55-1.02); SODIUM 142 mmol/L (136-145); eGFR NON BLACK RACES > 60 (>60)
[2018-01-06] MEDS: PULMICORT NEB TX 0.5 MG NEB SCH ×2 (08:27→20:55)
[2018-01-06] MEDS ORDERED: LEXAPRO ONE (08:39)
[2018-01-06] MEDS: ZESTRIL TAB 10 MG PO SCH (08:45)
[2018-01-06] MEDS: COREG TAB 3.125 MG PO SCH (08:45)
[2018-01-06] MEDS: MIRALAX POWDER (1 DOSE 17 G) PO SCH (08:45)
[2018-01-06] MEDS: ROBITUSSIN DM PO SCH ×4 (08:46→20:39)
[2018-01-06] MEDS: COLACE CAP 100 MG PO SCH ×2 (08:46→20:39)
[2018-01-06] MEDS: LEXAPRO PO SCH (08:46)
[2018-01-06] MEDS: PLAVIX PO SCH (08:49)
[2018-01-06] MEDS: LEVAQUIN PREMIX IV 750 MG 750 MG/150 ML BAG IV SCH (10:01)
[2018-01-06 14:49] LABS: ALANINE AMINOTRANSFERASE 72 Units/L (12-78); ALBUMIN 2.1 g/dL (3.4-5.0); ALKALINE PHOSPHATASE 81 Units/L (46-116); ASPARTATE AMINO TRANSFERASE 41 Units/L (15-37); COR CA(FOR HYPOALB) 9.3 mg/dL (8.5-10.1); TOTAL PROTEIN 5.6 g/dL (6.4-8.2)
[2018-01-06] MEDS: XANAX PO PRN (20:39)
[2018-01-06] MEDS: TYLENOL 325 MG TAB PO PRN (20:39)
[2018-01-07] MEDS: DUONEB 0.5 MG/3 MG NEB SCH ×6 (01:10→20:01)
[2018-01-07 04:55] LABS: BLOOD UREA NITROGEN 12 mg/dL (7-18); CALCIUM 7.5 mg/dL (8.5-10.1); CARBON DIOXIDE 25.4 mmol/L (21-32); CHLORIDE 108 mmol/L (98-107); CREATININE 0.57 mg/dL (0.55-1.02); SODIUM 142 mmol/L (136-145); eGFR NON BLACK RACES > 60 (>60)
[2018-01-07 05:05] LABS: BASOPHILS % (AUTO) 0.2 % (0.2-1.0); EOSINOPHILS # (AUTO) 0.3 x10^3/uL (0.0-0.2); EOSINOPHILS % (AUTO) 5.8 % (0.9-2.9); HEMATOCRIT 30.8 % (36.0-47.0); HEMOGLOBIN 10.1 g/dL (12.0-16.0); LYMPHOCYTES # (AUTO) 1.3 X10^3/uL (1.3-2.9); LYMPHOCYTES % (AUTO) 23.1 % (21.0-51.0); MEAN CORPUSCULAR HEMOGLOBIN 28.3 pg (27.0-34.0); MEAN CORPUSCULAR HGB CONC 32.8 g/dL (33.0-35.0); MEAN CORPUSCULAR VOLUME 86.4 fL (80.0-100.0); MEAN PLATELET VOLUME 7.8 fL (7.4-11.0); MONOCYTES # (AUTO) 0.6 x10^3/uL (0.3-0.8); MONOCYTES % (AUTO) 10.8 % (0.0-13.0); NEUTROPHILS # (AUTO) 3.3 x10^3/uL (2.2-4.8); NEUTROPHILS % (AUTO) 60.1 % (42.0-75.0); PLATELET COUNT 198 X10^3/uL (150.0-450.0); RED BLOOD COUNT 3.57 X10^6/uL (3.5-5.4); RED CELL DISTRIBUTION WIDTH 15.8 % (11.6-16.5); WHITE BLOOD COUNT 5.4 X10^3/uL (3.6-10.0)
[2018-01-07] MEDS: K-DUR TAB 20 MEQ PO PRN (05:31)
[2018-01-07] MEDS: ZOSYN VIAL 4.5 GRAMS 4.5 G in NS 100 ML IV + SPIKE MINIBAG* 100 ML IV SCH ×3 (05:32→21:43)
--- NOTE | 2018-01-07 05:41 | RAD ---
Examination: AP chest History: Pneumonia Comparison 01/05/2018 Findings: Stable heart size, with persistent right lower lobe infiltrate and pleural reaction. Increasing retrocardiac opacity obscuring the left diaphragm. No complicating pneumothorax. Impression: Persistent right lower lobe infiltrate with small pleural effusion. Increasing airspace disease in the left lower lobe consistent with pneumonia/atelectasis. Reported By:
[2018-01-07] MEDS ORDERED: LEXAPRO ONE (08:10)
[2018-01-07] MEDS: PULMICORT NEB TX 0.5 MG NEB SCH ×2 (08:37→20:01)
[2018-01-07] MEDS: MIRALAX POWDER (1 DOSE 17 G) PO SCH (08:41)
[2018-01-07] MEDS: LEXAPRO PO SCH (08:41)
[2018-01-07] MEDS: LEVAQUIN PREMIX IV 750 MG 750 MG/150 ML BAG IV SCH (08:41)
[2018-01-07] MEDS: ROBITUSSIN DM PO SCH ×4 (08:41→21:42)
[2018-01-07] MEDS: COLACE CAP 100 MG PO SCH ×2 (08:41→21:42)
[2018-01-07] MEDS: COREG TAB 3.125 MG PO SCH (08:41)
[2018-01-07] MEDS: ZESTRIL TAB 10 MG PO SCH (08:42)
[2018-01-07] MEDS: PLAVIX PO SCH (08:46)
[2018-01-07] MEDS: XANAX PO PRN (17:53)
[2018-01-07] MEDS: TYLENOL 325 MG TAB PO PRN (21:42)
[2018-01-08] MEDS: DUONEB 0.5 MG/3 MG NEB SCH ×7 (01:33→20:48)
[2018-01-08 05:19] LABS: BASOPHILS % (AUTO) 0.2 % (0.2-1.0); EOSINOPHILS # (AUTO) 0.3 x10^3/uL (0.0-0.2); EOSINOPHILS % (AUTO) 4.7 % (0.9-2.9); HEMATOCRIT 32.3 % (36.0-47.0); HEMOGLOBIN 10.7 g/dL (12.0-16.0); LYMPHOCYTES # (AUTO) 1.3 X10^3/uL (1.3-2.9); LYMPHOCYTES % (AUTO) 18.5 % (21.0-51.0); MEAN CORPUSCULAR HEMOGLOBIN 28.6 pg (27.0-34.0); MEAN CORPUSCULAR HGB CONC 33.3 g/dL (33.0-35.0); MEAN CORPUSCULAR VOLUME 85.8 fL (80.0-100.0); MEAN PLATELET VOLUME 7.9 fL (7.4-11.0); MONOCYTES # (AUTO) 0.6 x10^3/uL (0.3-0.8); MONOCYTES % (AUTO) 9.1 % (0.0-13.0); NEUTROPHILS # (AUTO) 4.6 x10^3/uL (2.2-4.8); NEUTROPHILS % (AUTO) 67.5 % (42.0-75.0); PLATELET COUNT 207 X10^3/uL (150.0-450.0); RED BLOOD COUNT 3.76 X10^6/uL (3.5-5.4); RED CELL DISTRIBUTION WIDTH 15.7 % (11.6-16.5); WHITE BLOOD COUNT 6.8 X10^3/uL (3.6-10.0)
[2018-01-08 05:26] LABS: ALANINE AMINOTRANSFERASE 48 Units/L (12-78); ALKALINE PHOSPHATASE 69 Units/L (46-116); ASPARTATE AMINO TRANSFERASE 26 Units/L (15-37); BLOOD UREA NITROGEN 8 mg/dL (7-18); CALCIUM 7.6 mg/dL (8.5-10.1); CARBON DIOXIDE 25.7 mmol/L (21-32); CHLORIDE 106 mmol/L (98-107); COR CA(FOR HYPOALB) 9.2 mg/dL (8.5-10.1); CREATININE 0.57 mg/dL (0.55-1.02); SODIUM 142 mmol/L (136-145); TOTAL PROTEIN 5.7 g/dL (6.4-8.2); eGFR NON BLACK RACES > 60 (>60)
[2018-01-08] MEDS: ZOSYN VIAL 4.5 GRAMS 4.5 G in NS 100 ML IV + SPIKE MINIBAG* 100 ML IV SCH ×3 (05:50→21:23)
[2018-01-08] MEDS: K-DUR TAB 20 MEQ PO PRN (06:10)
[2018-01-08] MEDS ORDERED: LEXAPRO ONE (08:40)
[2018-01-08] MEDS: COREG TAB 3.125 MG PO SCH (09:17)
[2018-01-08] MEDS: MIRALAX POWDER (1 DOSE 17 G) PO SCH (09:17)
[2018-01-08] MEDS: LEVAQUIN PREMIX IV 750 MG 750 MG/150 ML BAG IV SCH (09:17)
[2018-01-08] MEDS: PLAVIX PO SCH (09:18)
[2018-01-08] MEDS: ZESTRIL TAB 10 MG PO SCH (09:18)
[2018-01-08] MEDS: LEXAPRO PO SCH (09:18)
[2018-01-08] MEDS: ROBITUSSIN DM PO SCH ×3 (09:19→21:23)
[2018-01-08] MEDS: COLACE CAP 100 MG PO SCH ×2 (09:19→21:23)
[2018-01-08] MEDS: PULMICORT NEB TX 0.5 MG NEB SCH ×2 (09:20→20:48)
--- NOTE | 2018-01-08 09:38 | RAD ---
History: Pneumonia. Hypertension COPD CAD Technique: AP chest Comparison: 01/07/2018 Findings: There is a small right pleural effusion. There are reticulonodular interstitial opacities noted within the right lung base which appear unchanged previous exam. There is mild rotation to the left. There is a small left pleural effusion and left basilar density concerning for airspace disease unchanged from previous exam. The cardiac silhouette is normal in size. Impression: 1. No significant interval change with findings as above. Reported By:
[2018-01-08] MEDS ORDERED: K-DUR TAB 20 MEQ PO SCH (13:00)
[2018-01-08] MEDS ORDERED: LASIX IVP SCH (13:00)
[2018-01-08] MEDS: XANAX PO PRN (21:26)
[2018-01-09] MEDS: DUONEB 0.5 MG/3 MG NEB SCH ×3 (01:02→09:24)
[2018-01-09] MEDS: ZOSYN VIAL 4.5 GRAMS 4.5 G in NS 100 ML IV + SPIKE MINIBAG* 100 ML IV SCH ×2 (05:00→13:36)
[2018-01-09] MEDS ORDERED: LEXAPRO ONE (08:46)
--- NOTE | 2018-01-09 08:46 | RAD ---
History: Follow-up of pneumonia Study: Portable AP chest Comparison: Yesterday Findings: Patient is markedly rotated to the left. The left hemidiaphragm remains obscured and both costophrenic angles are blunted. There is increased density at both lung bases. The heart size is normal. The upper lobes are grossly clear. Impression: Bilateral small pleural effusions with lower lobe atelectasis and/or consolidation Reported By:
[2018-01-09] MEDS: PULMICORT NEB TX 0.5 MG NEB SCH (09:24)
[2018-01-09] MEDS: MIRALAX POWDER (1 DOSE 17 G) PO SCH (10:05)
[2018-01-09] MEDS: COREG TAB 3.125 MG PO SCH (10:06)
[2018-01-09] MEDS: ZESTRIL TAB 10 MG PO SCH (10:06)
[2018-01-09] MEDS: COLACE CAP 100 MG PO SCH (10:06)
[2018-01-09] MEDS: LEXAPRO PO SCH (10:06)
[2018-01-09] MEDS: PLAVIX PO SCH (10:07)
[2018-01-09] MEDS: ROBITUSSIN DM PO SCH ×3 (10:07→13:36)
[2018-01-09] MEDS: LEVAQUIN PREMIX IV 750 MG 750 MG/150 ML BAG IV SCH (10:07)
[2018-01-09] MEDS: K-DUR TAB 20 MEQ PO PRN (10:12)
[2018-01-09 12:35] VITALS: BP 113/52
--- NOTE | 2018-02-15 14:47 | PCM.PROG ---
Progress Note - Progress Note for Day of Date of Exam: 01/03/18 - Subjective Subjective: IS BEING TREATED FOR PNEUMONIA AND RESPIRATORY DISTRESS. SHE IS LYING IN BED WITH EYES CLOSED ON MORNING ROUNDS. SHE AWAKENS EASILY TO VERBAL STIMULI. SHE CONTINUES TO BE CONFUSED AND DISORIENTED. SHE CONTINUES WITH A PERSISTENT, PRODUCTIVE COUGH. ON EXAMINATION, HEART IS REGULAR IN RATE AND RHYTHM. BILATERAL LUNGS ARE NOTED WITH SCATTERED WHEEZING AND RHONCHI THROUGHOUT. ABDOMEN IS ROUND, SOFT, AND NON-TENDER WITH NORMAL BOWEL SOUNDS NOTED IN ALL QUADRANTS. HER VITALS THIS MORNING ARE 97.8-76-26-93%-143/78. LABS WERE OBTAINED. ABNORMAL LAB VALUES INCLUDE THE FOLLOWING: RBC 3.48, HGB 10.1, HCT 29.9, CHLORIDE 108, BUN 27, GLUCOSE 162, CALCIUM 8.4, AST 84, TOTAL PROTEIN 6.3, ALBUMIN 2.2. URINE CULTURE REPORTS GROWTH OF PSEUDOMONAS AERUGINOSA. SPUTUM CULTURE REPORTS GROWTH OF KLEBSIELLA PNEUMONIAE WELL ENTEROBACTER AGGLOMERANS. BOTH ARE SENSITIVE TO THE ANTIBIOTICS THAT SHE IS CURRENTLY RECEIVING. SHE IS CURRENTLY RECEIVING LEVAQUIN 750MG IV DAILY, ZOSYN 4.5G IV TID, IV FLUIDS, SOLU-MEDROL 40MG IV Q8H, AND RESPIRATORY TREATMENTS. WE WILL CONTINUE WITH CURRENT PLAN OF CARE TODAY. OTHERWISE, WE WILL FOLLOW UP WITH AM LABS AND CONTINUE TO MONITOR. - Past Medical Family Social History Past Med/Fam/Surg Hx: No changes since H&P Allergies: Allergies codeine Allergy (Verified 12/09/17 20:38) - Review of Systems ROS: No change since H&P - Vital Signs and I&O's Vital Signs: Temperature 99.1 F Pulse Rate [Left Brachial] 98 Pulse Rate 81 Respiratory Rate 20 Blood Pressure [Left Arm] 113/52 Blood Pressure [Right Arm] 138/61 Blood Pressure 174/78 O2 Sat by Pulse Oximetry 100 - Physical Exam Oriented: Not Oriented Eyes: Normal Ear: Normal Nose: Normal Throat: Normal Respiratory: Generalized, Diminished, Wheezes, Rhonchi Cardiovascular: Normal. negative: S3, S4, Murmur, Edema : Normal Auscultation: Bowel Sounds: Normal Palpation: Normal Tenderness: Normal Skin: Normal Musculoskeletal: Normal Psychiatric: Normal Mood Description: Calm Affect: Normal Speech Pattern: Clear, Appropriate - Laboratory and Diagnostics Result Diagrams: 01/08/18 04:24 01/08/18 04:24 Labs: 12/31/17 01:55 Blood Blood Culture - Final 12/31/17 01:49 Blood Blood Culture - Final 12/31/17 00:48 Sputum - Expectorated Sputum Sputum Culture - Final Klebsiella Pneumoniae Enterobacter Agglomerans 12/31/17 00:48 Sputum - Expectorated Sputum - Final 12/31/17 10:35 Urine,[place] Urine Culture - Final Pseudomonas Aeruginosa Laboratory WBC 6.8 X10^3/uL (3.6-10.0) 01/08/18 04:24 RBC 3.76 X10^6/uL (3.5-5.4) 01/08/18 04:24 Hgb 10.7 g/dL (12.0-16.0) L 01/08/18 04:24 Hct 32.3 % (36.0-47.0) L 01/08/18 04:24 MCV 85.8 fL (80.0-100.0) 01/08/18 04:24 MCH 28.6 pg (27.0-34.0) 01/08/18 04:24 MCHC 33.3 g/dL (33.0-35.0) 01/08/18 04:24 RDW 15.7 % (11.6-16.5) 01/08/18 04:24 Plt Count 207 X10^3/uL (150.0-450.0) 01/08/18 04:24 Plt Count Comment Adequate (ADEQUATE) 01/02/18 05:05 MPV 7.9 fL (7.4-11.0) 01/08/18 04:24 Neut % (Auto) 67.5 % (42.0-75.0) 01/08/18 04:24 Lymph % (Auto) 18.5 % (21.0-51.0) L 01/08/18 04:24 [place] % (Auto) 9.1 % (0.0-13.0) 01/08/18 04:24 Eos % (Auto) 4.7 % (0.9-2.9) H 01/08/18 04:24 Baso % (Auto) 0.2 % (0.2-1.0) 01/08/18 04:24 Neut # (Auto) 4.6 x10^3/uL (2.2-4.8) 01/08/18 04:24 Lymph # (Auto) 1.3 X10^3/uL (1.3-2.9) 01/08/18 04:24 [place] # (Auto) 0.6 x10^3/uL (0.3-0.8) 01/08/18 04:24 Eos # (Auto) 0.3 x10^3/uL (0.0-0.2) H 01/08/18 04:24 Baso # (Auto) 0.0 X10^3/uL (0.0-0.1) 01/08/18 04:24 Absolute Nucleated RBC 0.1 /100WBC 01/08/18 04:24 Plt Morphology Comment Normal (NORMAL) 01/02/18 05:05 RBC Morphology Normal (NORMAL) 01/02/18 05:05 INR Target Range - 12/31/17 00:47 INR 0.98 (0.8-1.3) 12/31/17 00:47 Sodium 142 mmol/L (136-145) 01/08/18 04:24 Corrected Sodium TNP 01/08/18 04:24 Potassium 3.5 mmol/L (3.5-5.1) 01/08/18 04:24 Chloride 106 mmol/L (98-107) 01/08/18 04:24 Carbon Dioxide 25.7 mmol/L (21-32) 01/08/18 04:24 BUN 8 mg/dL (7-18) 01/08/18 04:24 Creatinine 0.57 mg/dL (0.55-1.02) 01/08/18 04:24 Est GFR (MDRD) Af Amer > 60 (>60) 01/08/18 04:24 Est GFR (MDRD) Non-Af > 60 (>60) 01/08/18 04:24 Glucose 106 mg/dL (65-99) H 01/08/18 04:24 Calcium 7.6 mg/dL (8.5-10.1) L 01/08/18 04:24 Corrected Calcium 9.2 mg/dL (8.5-10.1) 01/08/18 04:24 Magnesium 2.0 mg/dL (1.7-2.9) 01/06/18 04:52 Total Bilirubin 0.40 mg/dL (0.2-1.0) 01/08/18 04:24 AST 26 Units/L (15-37) 01/08/18 04:24 ALT 48 Units/L (12-78) 01/08/18 04:24 Alkaline Phosphatase 69 Units/L (46-116) 01/08/18 04:24 Total Protein 5.7 g/dL (6.4-8.2) L 01/08/18 04:24 Albumin 2.0 g/dL (3.4-5.0) L 01/08/18 04:24 Globulin 3.7 g/dL (2.5-4.5) 01/08/18 04:24 Albumin/Globulin Ratio 0.5 Ratio (1.1-2.1) L 01/08/18 04:24 Specimen Type Catherized urine 12/31/17 10:35 Urine Color Yellow (YELLOW) 12/31/17 10:35 Urine Appearance Cloudy (CLEAR) 12/31/17 10:35 Urine pH 6.5 (5.0 - 8.0) 12/31/17 10:35 Ur Specific [place] 1.015 (1.000-1.030) 12/31/17 10:35 Urine Protein 2+ (NEGATIVE) 12/31/17 10:35 Urine Glucose (UA) Negative (NEGATIVE) 12/31/17 10:35 Urine Ketones Negative (NEGATIVE) 12/31/17 10:35 Urine Occult Blood 4+ (NEGATIVE) 12/31/17 10:35 Urine Nitrite Negative (NEGATIVE) 12/31/17 10:35 Urine Bilirubin Negative (NEGATIVE) 12/31/17 10:35 Urine Urobilinogen Normal (NORMAL) 12/31/17 10:35 Ur Leukocyte Esterase 2+ (NEGATIVE) 12/31/17 10:35 Urine RBC 3-5 /HPF (NONE SEEN) 12/31/17 10:35 Urine WBC Tntc /HPF (NONE SEEN) 12/31/17 10:35 Ur Squamous Epith Cells Few /HPF (NEGATIVE) 12/31/17 10:35 Amorphous Sediment 1+ /HPF (NEGATIVE) 12/31/17 10:35 Urine Bacteria 1+ /HPF (NEGATIVE) 12/31/17 10:35 Ur Culture Indicated? Yes/culture set up 12/31/17 10:35 - Plan (1) Pneumonia Status: Acute Qualifiers: Pneumonia type: due to unspecified organism Laterality: right Lung location: lower lobe of lung Qualified Code(s): J18.1 - Lobar pneumonia, unspecified organism Plan: PNEUMONIA PROTOCOL, FORTAZ, LEVAQUIN, RESPIRATORY TREATMENTS, SOLU-MEDROL 40MG IV Q8H, CONTINUE TO MONITOR (2) Respiratory failure with hypoxia Status: Acute Qualifiers: Chronicity: acute Qualified Code(s): J96.01 - Acute respiratory failure with hypoxia Plan: RESPIRATORY TREATMENTS, SUPPLEMENTAL OXYGEN, CONTINUE TO MONITOR.
== END 2018-01-09 13:45 | DRG 193 ==
LOC: ER 00:27 → MED/SURG 02:40
PROVIDERS: ADMIT Obstetrics & Gynecology Obstetrics; ATTEND Internal Medicine
DX: J96.01 Acute respiratory failure with hypoxia; R94.31 Abnormal electrocardiogram [ECG] [EKG]; K59.09 Other constipation; M62.81 Muscle weakness (generalized); N39.0 Urinary tract infection, site not specified; I51.7 Cardiomegaly; B96.5 Pseudomonas (aeruginosa) (mallei) (pseudomallei) as the cause of diseases classified elsewhere; F32.89 Other specified depressive episodes; J18.1 Lobar pneumonia, unspecified organism; F03.90 Unspecified dementia, unspecified severity, without behavioral disturbance, psychotic disturbance, mood disturbance, and anxiety; J44.0 Chronic obstructive pulmonary disease with (acute) lower respiratory infection; I25.10 Atherosclerotic heart disease of native coronary artery without angina pectoris
CPT/HCPCS: 36415; 36600; 71010; 71045; 80048; 80053; 81001; 83735; 84132; 85025; 85610; 87040; 87070; 87077; 87086; 87088; 87186; 87205; 93005; 93306; 94640; 94760; 96365; 96374; 96375; 97110; 97163; 97166; 97530; 97535; 99231; 99284; A4222; J1940; J1956; J2270; J2543; J2920; J3370; J3475; J3480; J3490; J7030; J7040; J7050; J7060; J7608; J7620; J7626

== ENCOUNTER 2018-03-25 14:02 | Inpatient (IN) ==
[2018-03-25 14:33] LABS: BASOPHILS % (AUTO) 0.5 % (0.2-1.0); EOSINOPHILS % (AUTO) 0.1 % (0.9-2.9); HEMATOCRIT 35.8 % (36.0-47.0); HEMOGLOBIN 11.7 g/dL (12.0-16.0); LYMPHOCYTES # (AUTO) 0.8 X10^3/uL (1.3-2.9); LYMPHOCYTES % (AUTO) 8.6 % (21.0-51.0); MEAN CORPUSCULAR HGB CONC 32.6 g/dL (33.0-35.0); MEAN CORPUSCULAR VOLUME 85.8 fL (80.0-100.0); MEAN PLATELET VOLUME 8.8 fL (7.4-11.0); MONOCYTES # (AUTO) 1.5 x10^3/uL (0.3-0.8); MONOCYTES % (AUTO) 15.5 % (0.0-13.0); NEUTROPHILS # (AUTO) 7.2 x10^3/uL (2.2-4.8); NEUTROPHILS % (AUTO) 75.3 % (42.0-75.0); PLATELET COUNT 172 X10^3/uL (150.0-450.0); RED BLOOD COUNT 4.17 X10^6/uL (3.5-5.4); RED CELL DISTRIBUTION WIDTH 16.3 % (11.6-16.5); WHITE BLOOD COUNT 9.6 X10^3/uL (3.6-10.0)
[2018-03-25 14:46] LABS: ALANINE AMINOTRANSFERASE 17 Units/L (12-78); ALBUMIN 2.6 g/dL (3.4-5.0); ALKALINE PHOSPHATASE 91 Units/L (46-116); ASPARTATE AMINO TRANSFERASE 16 Units/L (15-37); BLOOD UREA NITROGEN 21 mg/dL (7-18); CALCIUM 8.7 mg/dL (8.5-10.1); CARBON DIOXIDE 28.1 mmol/L (21-32); CHLORIDE 106 mmol/L (98-107); COR CA(FOR HYPOALB) 9.8 mg/dL (8.5-10.1); COR NA(FOR HYPERGLY) 143 mmol/L (136-145); SODIUM 140 mmol/L (136-145); TOTAL PROTEIN 7.1 g/dL (6.4-8.2); eGFR NON BLACK RACES > 60 (>60)
[2018-03-25 14:49] LABS: LACTIC ACID 1.3 mmol/L (0.4-2.0)
[2018-03-25] MEDS ORDERED: NS 1000 ML 1,000 ML ONE (14:49)
[2018-03-25 14:59] LABS: BILIRUBIN,URINE NEGATIVE (NEGATIVE); BLOOD/HEMOGLOBIN,URINE 5+ (NEGATIVE); GLUCOSE, URINE 1+ (NEGATIVE); KETONES,URINE NEGATIVE (NEGATIVE); LEUKOCYTE ESTERASE ,URINE 1+ (NEGATIVE); NITRITES,URINE NEGATIVE (NEGATIVE); PH,URINE 6.5 (5.0 - 8.0); PROTEIN,URINE 2+ (NEGATIVE); UROBILINOGEN,URINE 1+ (NORMAL)
[2018-03-25] MEDS ORDERED: NS 1000 ML 1,000 ML IV SCH (15:00)
[2018-03-25 15:02] LABS: APPEARANCE,URINE CLOUDY (CLEAR); COLOR,URINE YELLOW (YELLOW)
--- NOTE | 2018-03-25 15:17 | DR.GENAD ---
HPI Time Seen Time Seen by Provider: 03/25/18 14:44 PCP Primary Care Physician: an Complaint/Symptoms Chief Complaint:: david stated that pt was breathing 47 times a minute and wheezing, and they were unable to get bp and 02 sat Source History Provided: Half-Way Mode of Arrival Mode of Arrival: Wheelchair Timing Onset of Chief Complaint: 03/23/18 PMH PMH Past Medical History: Yes Past Medical History: COPD, Coronary Artery Disease, Dementia, Hypertension and VT Past Surgical History: Yes Surgical History: Ortho Surgery Family History History of Family Medical Conditions: No Social History Does patient currently use any type of tobacco product: No Have you used tobacco products in the last 12 months: No Type of Tobacco Use: None Does any household member use tobacco: No Alcohol Use: None Do you use any recreational Drugs:: No Lives With: Other Lives Where: Half-Way infectious screening In the last 2 months have you had wt loss of >10#?: NO Have you had fever, night sweats or hemotysis?: No Have you traveled outside the country in the last 6 months?: No Isolation: Standard PE Vital Signs Vitals: Temperature 97.3 F Pulse Rate [Right Brachial] 65 Pulse Rate [Left Brachial] 85 Pulse Rate 74 Respiratory Rate 18 Blood Pressure [Left Arm] 160/80 Blood Pressure [Right Arm] 116/58 Blood Pressure 152/72 O2 Sat by Pulse Oximetry 95 General Limitations: Language Barrier and Altered Mental Status General Appearance: Alert and In No Apparent Distress Head Head Exam: Normal Inspection, Atraumatic and Normocephalic Eyes Eye exam: Normal Appearance, PERRL and EOMI ENT ENT Exam: Normal Exam, Normal Oropharynx and Normal External Ear Exam External Ear Exam: Normal External Inspection TM/Canal Exam: Bilateral: Normal Nose Exam: Normal Nose Exam Mouth Exam: Normal Inspection Throat Exam: Normal Inspection Neck Neck Exam: Normal Inspection and Full ROM Chest Chest Inspection: Normal Inspection and Symmetric Chest Wall Rise Respiratory Respiratory Exam: Bilateral: Wheezing Cardiovascular Cardiovascular Exam: Regular Rate and Normal Rhythm Abdominal Exam Abdominal Exam: Normal Inspection, Normal Bowel Sounds and Soft Abdominal Tenderness: RUQ, RLQ and LUQ Extremities Extremities Exam: Normal Inspection and Full ROM Back Back Exam: Normal Inspection and Full ROM Neurologic Neurological Exam: Alert, Oriented X3 and CN II-XII Intact Psychiatric Psychiatric Exam: Depressed Skin Skin Exam: Warm, Dry and Intact COURSE Reevaluation 1st: Unchanged Consultation Called: 16:55 Consultation Comments: Patient discussed with Dr. Yanez who recommended admission and further evaluation and treatment. ROR Labs Reviewed Laboratory Results Reviewed?: Yes Result Diagrams: 03/25/18 14:15 03/25/18 14:15 Laboratory: WBC 9.6 X10^3/uL (3.6-10.0) 03/25/18 14:15 RBC 4.17 X10^6/uL (3.5-5.4) 03/25/18 14:15 Hgb 11.7 g/dL (12.0-16.0) L 03/25/18 14:15 Hct 35.8 % (36.0-47.0) L 03/25/18 14:15 MCV 85.8 fL (80.0-100.0) 03/25/18 14:15 MCH 28.0 pg (27.0-34.0) 03/25/18 14:15 MCHC 32.6 g/dL (33.0-35.0) L 03/25/18 14:15 RDW 16.3 % (11.6-16.5) 03/25/18 14:15 Plt Count 172 X10^3/uL (150.0-450.0) 03/25/18 14:15 MPV 8.8 fL (7.4-11.0) 03/25/18 14:15 Neut % (Auto) 75.3 % (42.0-75.0) H 03/25/18 14:15 Lymph % (Auto) 8.6 % (21.0-51.0) L 03/25/18 14:15 [place] % (Auto) 15.5 % (0.0-13.0) H 03/25/18 14:15 Eos % (Auto) 0.1 % (0.9-2.9) L 03/25/18 14:15 Baso % (Auto) 0.5 % (0.2-1.0) 03/25/18 14:15 Neut # (Auto) 7.2 x10^3/uL (2.2-4.8) H 03/25/18 14:15 Lymph # (Auto) 0.8 X10^3/uL (1.3-2.9) L 03/25/18 14:15 [place] # (Auto) 1.5 x10^3/uL (0.3-0.8) H 03/25/18 14:15 Eos # (Auto) 0.0 x10^3/uL (0.0-0.2) 03/25/18 14:15 Baso # (Auto) 0.0 X10^3/uL (0.0-0.1) 03/25/18 14:15 Absolute Nucleated RBC 0.0 /100WBC 03/25/18 14:15 D-Dimer 1410 ng/mL (0-400) H* 03/25/18 14:15 Sodium 140 mmol/L (136-145) 03/25/18 14:15 Corrected Sodium 143 mmol/L (136-145) 03/25/18 14:15 Potassium 3.8 mmol/L (3.5-5.1) 03/25/18 14:15 Chloride 106 mmol/L (98-107) 03/25/18 14:15 Carbon Dioxide 28.1 mmol/L (21-32) 03/25/18 14:15 BUN 21 mg/dL (7-18) H 03/25/18 14:15 Creatinine 0.80 mg/dL (0.55-1.02) 03/25/18 14:15 Est GFR (MDRD) Af Amer > 60 (>60) 03/25/18 14:15 Est GFR (MDRD) Non-Af > 60 (>60) 03/25/18 14:15 Glucose 212 mg/dL (65-99) H 03/25/18 14:15 Lactic Acid 1.3 mmol/L (0.4-2.0) 03/25/18 14:15 Calcium 8.7 mg/dL (8.5-10.1) 03/25/18 14:15 Corrected Calcium 9.8 mg/dL (8.5-10.1) 03/25/18 14:15 Total Bilirubin 0.30 mg/dL (0.2-1.0) 03/25/18 14:15 AST 16 Units/L (15-37) 03/25/18 14:15 ALT 17 Units/L (12-78) 03/25/18 14:15 Alkaline Phosphatase 91 Units/L (46-116) 03/25/18 14:15 Total Protein 7.1 g/dL (6.4-8.2) 03/25/18 14:15 Albumin 2.6 g/dL (3.4-5.0) L 03/25/18 14:15 Globulin 4.5 g/dL (2.5-4.5) 03/25/18 14:15 Albumin/Globulin Ratio 0.6 Ratio (1.1-2.1) L 03/25/18 14:15 Specimen Type Catherized urine 03/25/18 14:34 Urine Color Yellow (YELLOW) 03/25/18 14:34 Urine Appearance Cloudy (CLEAR) 03/25/18 14:34 Urine pH 6.5 (5.0 - 8.0) 03/25/18 14:34 Ur Specific [place] 1.015 (1.000-1.030) 03/25/18 14:34 Urine Protein 2+ (NEGATIVE) 03/25/18 14:34 Urine Glucose (UA) 1+ (NEGATIVE) 03/25/18 14:34 Urine Ketones Negative (NEGATIVE) 03/25/18 14:34 Urine Occult Blood 5+ (NEGATIVE) 03/25/18 14:34 Urine Nitrite Negative (NEGATIVE) 03/25/18 14:34 Urine Bilirubin Negative (NEGATIVE) 03/25/18 14:34 Urine Urobilinogen 1+ (NORMAL) 03/25/18 14:34 Ur Leukocyte Esterase 1+ (NEGATIVE) 03/25/18 14:34 Urine RBC Tntc /HPF (NONE SEEN) 03/25/18 14:34 Urine WBC 10-20 /HPF (NONE SEEN) 03/25/18 14:34 Ur Squamous Epith Cells Rare /HPF (NEGATIVE) 03/25/18 14:34 Amorphous Sediment Trace /HPF (NEGATIVE) 03/25/18 14:34 Urine Bacteria Trace /HPF (NEGATIVE) 03/25/18 14:34 Urine Yeast Few /HPF (NEGATIVE) 03/25/18 14:34 Ur Culture Indicated? Yes/culture set up 03/25/18 14:34 Other Results Comments: Chest: comparison w 02/22/09: The cardiac silhouette is enlarged with prominent perihilar vasculature, diffuse alveolar/interstitial markings, and small bilateral pleural effusions. Chronic emphysematous changes. No obvious pneumothorax. Moderate-sized hiatal hernia. The bony thorax is unremarkable. Impression: Constellation of findings likely representing pulmonary edema secondary to congestive heat failure. Underlyintg infiltrate not entirely excluded. XRAY XRAY Interpreted by: Radiologist Diagnosis Discharge Problem: UTI (urinary tract infection) Qualifiers: Urinary tract infection type: site unspecified Hematuria presence: without hematuria Qualified Code(s): N39.0 - Urinary tract infection, site not specified Pulmonary edema Qualifiers: Chronicity: chronic Qualified Code(s): J81.1 - Chronic pulmonary edema CHF (congestive heart failure) Qualifiers: Heart failure type: unspecified Heart failure chronicity: unspecified Qualified Code(s): I50.9 - Heart failure, unspecified ADDITIONAL NOTES Additional Notes Additional Notes: Patient treated with cipro IV prior to admission.
[2018-03-25 15:27] LABS: AMORPHOUS SEDIMENT,UR TRACE /HPF (NEGATIVE); BACTERIA,URINE TRACE /HPF (NEGATIVE); RBC,URINE TNTC /HPF (NONE SEEN); SQUAMOUS EPITHELIAL CELL,UR RARE /HPF (NEGATIVE)
[2018-03-25 15:28] LABS: YEAST,URINE FEW /HPF (NEGATIVE)
--- NOTE | 2018-03-25 15:32 | RAD ---
HISTORY: Tachypnea and wheezing. Study: Portable chest. Comparison: Chest x-ray dated March 14, 2018. Findings: The trachea is midline. The cardiac silhouette is enlarged with prominent perihilar vasculature, diffuse alveolar/interstitial markings, and small bilateral pleural effusions. Chronic emphysematous changes. No obvious pneumothorax. Moderate-sized hiatal hernia. The bony thorax is unremarkable. IMPRESSION: Constellation of findings likely representing pulmonary edema secondary to congestive heart failure. Underlying infiltrate not entirely excluded. Reported By:
[2018-03-25] MEDS ORDERED: LASIX IVP ONE (15:38)
[2018-03-25] MEDS ORDERED: LASIX ONE (15:39)
--- NOTE | 2018-03-25 16:52 | CT ---
STUDY: CTA CHEST WITH CONTRAST History: Elevated D-dimer. Comparison: None. Technique: Multiple axial images of the chest were obtained from the thoracic inlet to the upper abdomen after the administration of IV contrast. Image acquisition was optimized for evaluation of pulmonary arterial system. 3D, coronal and sagittal reformatted images were performed and reviewed. Automated exposure control (AEC) was utilized to adjust the MA and/or kV. Findings: There is no evidence of abnormal filling defect in the main pulmonary arteries and their major branches to indicate presence of acute pulmonary thromboembolic disease. There is no evidence of aortic aneurysm or dissection. There is no significant pericardial effusion. Shotty lymph nodes, likely reactive, are noted in the mediastinum. No pathologically enlarged lymph nodes are identified. There are changes of COPD in both lungs. There is scarring in subpleural nodular density in the periphery of the right lower lobe. There is mild atelectasis versus pleural thickening in the left lung base. The visualized solid visceral organs in the upper abdomen are otherwise unremarkable. IMPRESSION: 1. No evidence of acute pulmonary thromboembolic disease. 2. No evidence of acute pulmonary abnormality. 3. COPD and chronic lung changes as described. Reported By:
[2018-03-25] MEDS: CIPRO IV 400 MG PREMIX* 400 MG/200 ML IV.SOLN. IV SCH ×2 (16:54→21:26)
[2018-03-25] MEDS ORDERED: DUONEB 0.5 MG/3 MG IN SCH ×2 (17:58→18:15)
[2018-03-25] MEDS: DUONEB 0.5 MG/3 MG IN SCH (20:40)
[2018-03-25 20:45] VITALS: BMI 17.7
[2018-03-25] MEDS ORDERED: MINERAL OIL PO SCH (21:00)
[2018-03-25] MEDS: COLACE CAP 100 MG PO SCH (21:26)
[2018-03-25] MEDS: MINERAL OIL PO SCH (21:27)
[2018-03-26] MEDS: DUONEB 0.5 MG/3 MG IN SCH ×6 (01:20→20:35)
[2018-03-26] MEDS: COLACE CAP 100 MG PO SCH ×3 (01:47→21:20)
[2018-03-26 05:26] LABS: BASOPHILS # (AUTO) 0.1 X10^3/uL (0.0-0.1); BASOPHILS % (AUTO) 0.6 % (0.2-1.0); EOSINOPHILS # (AUTO) 0.1 x10^3/uL (0.0-0.2); EOSINOPHILS % (AUTO) 0.9 % (0.9-2.9); HEMATOCRIT 37.8 % (36.0-47.0); HEMOGLOBIN 12.2 g/dL (12.0-16.0); LYMPHOCYTES # (AUTO) 1.3 X10^3/uL (1.3-2.9); LYMPHOCYTES % (AUTO) 14.2 % (21.0-51.0); MEAN CORPUSCULAR HGB CONC 32.2 g/dL (33.0-35.0); MEAN CORPUSCULAR VOLUME 87.1 fL (80.0-100.0); MEAN PLATELET VOLUME 8.7 fL (7.4-11.0); MONOCYTES # (AUTO) 1.6 x10^3/uL (0.3-0.8); MONOCYTES % (AUTO) 17.5 % (0.0-13.0); NEUTROPHILS # (AUTO) 5.9 x10^3/uL (2.2-4.8); NEUTROPHILS % (AUTO) 66.8 % (42.0-75.0); PLATELET COUNT 161 X10^3/uL (150.0-450.0); RED BLOOD COUNT 4.34 X10^6/uL (3.5-5.4); RED CELL DISTRIBUTION WIDTH 16.5 % (11.6-16.5); WHITE BLOOD COUNT 8.9 X10^3/uL (3.6-10.0)
[2018-03-26 05:40] LABS: ALANINE AMINOTRANSFERASE 20 Units/L (12-78); ALBUMIN 2.6 g/dL (3.4-5.0); ALKALINE PHOSPHATASE 90 Units/L (46-116); ASPARTATE AMINO TRANSFERASE 19 Units/L (15-37); BLOOD UREA NITROGEN 18 mg/dL (7-18); CALCIUM 9.1 mg/dL (8.5-10.1); CARBON DIOXIDE 31.3 mmol/L (21-32); CHLORIDE 104 mmol/L (98-107); COR CA(FOR HYPOALB) 10.2 mg/dL (8.5-10.1); COR NA(FOR HYPERGLY) 142 mmol/L (136-145); CREATININE 0.77 mg/dL (0.55-1.02); SODIUM 141 mmol/L (136-145); TOTAL PROTEIN 7.3 g/dL (6.4-8.2); eGFR NON BLACK RACES > 60 (>60)
[2018-03-26] MEDS ORDERED: LEXAPRO ONE (08:36)
--- NOTE | 2018-03-26 09:09 | DR.H&P ---
H&P - History & Physical for Day of: H&P Date: 03/25/18 - Chief Complaint Chief Complaint: TACHYPNEA, WHEEZING, HYPOXEMIA - History of Present Illness History of Present Illness: IS AN 83 YEAR OLD PATIENT OF OURS WHO IS A RESIDENT OF [facility]. SHE PRESENTED WITH COMPLAINTS OF TACHYPNEA, WHEEZING, HYPOTENSION, AND HYPOXEMIA. HALFWAY STAFF REPORTED THAT HER OXYGEN SATURATIONS WERE IN THE 80s PRIOR TO TRANSPORTING HER TO THE ER. ON ARRIVAL TO THE ER, VITALS WERE 101.9-85-38-87%RA-152/72. LABS WERE OBTAINED. ABNORMAL LAB VALUES INCLUDE THE FOLLOWING: HGB 11.7, HCT 35.8, D-DIMER 1410, BUN 21, GLUCOSE 212, ALBUMIN 2.6. URINALYSIS WAS OBTAINED AND REVEALED: WBC 10-20, RBC TNTC, LEUKOCYTES 1+, BACTERIA TRACE, YEAST FEW. A CHEST XRAY WAS OBTAINED AND REVEALED: Constellation of findings likely representing pulmonary edema secondary to congestive heart failure. Underlying infiltrate not entirely excluded. A CHEST CTA WAS OBTAINED AND REVEALED: No evidence of acute pulmonary thromboembolic disease. No evidence of acute pulmonary abnormality. COPD and chronic lung changes as described. SHE WAS GIVEN LASIX 20MG IV X 1 DOSE IN THE ER. SHE WAS ADMITTED TO THE HOSPITAL FOR FURTHER EVAULATION AND TREATMENT OF UTI, PULMONARY EDEMA, CHF, AND COPD. SHE WAS STARTED ON CIPRO 400MG IV Q12H, DUONEB Q4H, SUPPLEMENTAL OXYGEN, AND LASIX 20MG IV BID. WE PLAN TO FOLLOW UP WITH AM LABS AND CHEST XRAY AND CONTINUE TO MONITOR. - Past Medical History Past Medical History: Alzheimers, COPD, Coronary Artery Disease, Dementia, Depression, Hypertension, [place], Schizophrenia - Past Surgical History Surgical History: Ortho Surgery Additional Surgical History: RIGHT ABOVE THE KNEE AMPUTATION - Social History Does patient currently use any type of tobacco product: No Have you used tobacco products in the last 12 months: No Type of Tobacco Use: None Does any household member use tobacco: No Alcohol Use: None Drug Use: None - Medications Home Medications: codeine Allergy (Verified 12/09/17 20:38) - Review of Systems Constitutional: See HPI, Fever, Weakness Eyes: No Symptoms Reported ENT: No Symptoms Reported Respiratory: Shortness of Breath, SOB with Excertion, Wheezing Cardiovascular: Edema Gastrointestinal: Abdominal Pain Genitourinary: No Symptoms Reported Musculoskeletal: No Symptoms Reported Skin: No Symptoms Reported Neurological: Weakness - Physical Exam Vital Signs: Temperature 97.9 F Pulse Rate [Right Brachial] 70 Pulse Rate [Left Brachial] 85 Pulse Rate 83 Respiratory Rate 20 Blood Pressure [Left Arm] 160/80 Blood Pressure [Right Arm] 142/74 Blood Pressure 152/72 O2 Sat by Pulse Oximetry 95 Oriented: Person Eyes: Normal Ear: Normal Nose: Normal Throat: Normal Respiratory: Wheezes Throughout Cardiovascular: Normal, Edema. negative: S3, S4, Murmur : Normal Auscultation: Bowel Sounds: Normal, Increased (LOWER EXTREMITY EDEMA ) Palpation: Normal Tenderness: Suprapubic. negative: Rebound, Guarding, Rigidity Skin: Normal Musculoskeletal: Normal Psychiatric: Normal Mood Description: Calm Affect: Normal Speech Pattern: Clear - Assessment/Plan (1) UTI (urinary tract infection) Qualifiers: Urinary tract infection type: site unspecified Hematuria presence: without hematuria Qualified Code(s): N39.0 - Urinary tract infection, site not specified Status: Acute Plan: ADMIT, CIPRO 400MG IV Q12H, CONTINUE TO MONITOR (2) CHF (congestive heart failure) Qualifiers: Heart failure type: unspecified Heart failure chronicity: unspecified Qualified Code(s): I50.9 - Heart failure, unspecified Status: Acute Plan: LASIX 20MG IV BID, RESPIRATORY TX, SUPPLEMENTAL OXYGEN, MONITOR CHEST XRAY (3) Respiratory failure with hypoxia Qualifiers: Chronicity: acute Qualified Code(s): J96.01 - Acute respiratory failure with hypoxia Status: Acute Plan: LASIX 20MG IV BID, RESPIRATORY TX, SUPPLEMENTAL OXYGEN, MONITOR CHEST XRAY (4) COPD (chronic obstructive pulmonary disease) Qualifiers: COPD type: COPD with acute lower respiratory infection Qualified Code(s): J44.0 - Chronic obstructive pulmonary disease with acute lower respiratory infection Status: Chronic Plan: LASIX 20MG IV BID, RESPIRATORY TX, SUPPLEMENTAL OXYGEN, MONITOR CHEST XRAY - Allergies Allergies/Adverse Reactions: Allergies Allergy/AdvReac Type Severity Reaction Status Date / Time codeine Allergy Verified 12/09/17 20:38
[2018-03-26] MEDS: CIPRO IV 400 MG PREMIX* 400 MG/200 ML IV.SOLN. IV SCH ×2 (09:45→21:20)
[2018-03-26] MEDS: PLAVIX PO SCH (09:46)
[2018-03-26] MEDS: ZESTRIL TAB 10 MG PO SCH (09:46)
[2018-03-26] MEDS: LASIX IVP SCH ×2 (09:47→21:19)
[2018-03-26] MEDS: MICRO K EXTEN CAP 10 MEQ PO SCH (09:47)
[2018-03-26] MEDS: LEXAPRO PO SCH (09:47)
[2018-03-26] MEDS: COREG TAB 3.125 MG PO SCH (09:47)
[2018-03-26] MEDS: MINERAL OIL PO SCH ×2 (09:48→21:21)
[2018-03-26] MEDS: MIRALAX POWDER (1 DOSE 17 G) PO SCH (09:48)
[2018-03-26] MEDS ORDERED: POTASSIUM CHL 40 MEQ/NS 0.45% 500 ML IV PRN (19:23)
[2018-03-26] MEDS ORDERED: K-DUR TAB 20 MEQ PO PRN (19:23)
[2018-03-26] MEDS ORDERED: MICRO K EXTEN CAP 10 MEQ PO PRN (19:23)
[2018-03-26] MEDS ORDERED: POTASSIUM CHLORIDE LIQ 20 MEQ UDC PO PRN (19:23)
[2018-03-26] MEDS ORDERED: KLOR-CON PO PRN (19:23)
[2018-03-26] MEDS ORDERED: K-RIDER 10 MEQ/NS 100 ML 10 MEQ/100 ML BAG IV PRN (19:23)
[2018-03-26] MEDS ORDERED: POTASSIUM CHL 60 MEQ/NS 0.45% 500 ML IV PRN (19:23)
[2018-03-26] MEDS ORDERED: TYLENOL 325 MG TAB PO PRN (19:54)
[2018-03-26] MEDS: MAGNESIUM SULFATE 1 GRAM/100 mL PREMIX 1 GM/100 ML BAG IV PRN ×2 (22:24→23:29)
[2018-03-27] MEDS: DUONEB 0.5 MG/3 MG IN SCH ×6 (01:10→21:16)
--- NOTE | 2018-03-27 06:18 | RAD ---
HISTORY: Shortness of breath, COPD Study: Chest AP portable Comparison: March 25, 2018 plain film and CTA chest Findings: Patient is rotated to the left. The heart is mildly enlarged. No congestive heart failure is noted. The aorta is calcified. The lungs are hyperinflated consistent with COPD. Emphysematous changes are present in the upper lobes. Interstitial lung changes are present in the lower lobes. No acute alveolar infiltrates are identified. No pleural effusions are present. The bony thorax is unremarkable. 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 Reported By:
[2018-03-27 06:23] LABS: BASOPHILS % (AUTO) 0.3 % (0.2-1.0); EOSINOPHILS # (AUTO) 0.1 x10^3/uL (0.0-0.2); EOSINOPHILS % (AUTO) 1.9 % (0.9-2.9); HEMATOCRIT 33.4 % (36.0-47.0); LYMPHOCYTES # (AUTO) 1.3 X10^3/uL (1.3-2.9); LYMPHOCYTES % (AUTO) 16.7 % (21.0-51.0); MEAN CORPUSCULAR HEMOGLOBIN 28.3 pg (27.0-34.0); MEAN CORPUSCULAR VOLUME 85.6 fL (80.0-100.0); MEAN PLATELET VOLUME 9.3 fL (7.4-11.0); MONOCYTES # (AUTO) 1.2 x10^3/uL (0.3-0.8); MONOCYTES % (AUTO) 15.8 % (0.0-13.0); NEUTROPHILS # (AUTO) 5.1 x10^3/uL (2.2-4.8); NEUTROPHILS % (AUTO) 65.3 % (42.0-75.0); PLATELET COUNT 169 X10^3/uL (150.0-450.0); RED CELL DISTRIBUTION WIDTH 16.1 % (11.6-16.5); WHITE BLOOD COUNT 7.8 X10^3/uL (3.6-10.0)
[2018-03-27 06:45] LABS: CHLORIDE 102 mmol/L (98-107); CREATININE 0.64 mg/dL (0.55-1.02); SODIUM 137 mmol/L (136-145); eGFR NON BLACK RACES > 60 (>60)
[2018-03-27 07:13] LABS: ALANINE AMINOTRANSFERASE 17 Units/L (12-78); ALBUMIN 2.3 g/dL (3.4-5.0); ALKALINE PHOSPHATASE 85 Units/L (46-116); ASPARTATE AMINO TRANSFERASE 28 Units/L (15-37); BLOOD UREA NITROGEN 22 mg/dL (7-18); CALCIUM 8.6 mg/dL (8.5-10.1); CARBON DIOXIDE 25.4 mmol/L (21-32); COR NA(FOR HYPERGLY) 137 mmol/L (136-145); MAGNESIUM 2.3 mg/dL (1.7-2.9); TOTAL PROTEIN 6.6 g/dL (6.4-8.2)
[2018-03-27] MEDS ORDERED: LEXAPRO ONE (08:56)
[2018-03-27] MEDS: CIPRO IV 400 MG PREMIX* 400 MG/200 ML IV.SOLN. IV SCH ×2 (09:29→21:50)
[2018-03-27] MEDS: COLACE CAP 100 MG PO SCH ×2 (09:30→21:50)
[2018-03-27] MEDS: LASIX IVP SCH ×2 (09:30→21:50)
[2018-03-27] MEDS: COREG TAB 3.125 MG PO SCH (09:30)
[2018-03-27] MEDS: MICRO K EXTEN CAP 10 MEQ PO SCH (09:30)
[2018-03-27] MEDS: LEXAPRO PO SCH (09:31)
[2018-03-27] MEDS: ZESTRIL TAB 10 MG PO SCH (09:31)
[2018-03-27] MEDS: MIRALAX POWDER (1 DOSE 17 G) PO SCH (09:32)
[2018-03-27] MEDS: PLAVIX PO SCH (09:32)
[2018-03-27] MEDS: MINERAL OIL PO SCH (09:32)
--- NOTE | 2018-03-27 21:17 | PCM.PROG ---
Progress Note - Progress Note for Day of Date of Exam: 03/26/18 - Subjective Subjective: WAS ADMITTED FOR UTI, CHF, AND COPD. TODAY, SHE IS LYING IN BED WITH EYES CLOSED ON MORNING ROUNDS. SHE AWAKENS AND RESPONDS TO VERBAL STIMULI. SHE CONTINUES WITH COMPLAINTS OF SHORTNESS OF BREATH AND LOWER ABDOMINAL PAIN TODAY. HER VITALS THIS MORNING ARE 97.9-70-20-95%-142/74. LABS WERE OBTAINED. ABNORMAL LAB VALUES INCLUDE THE FOLLOWING: GLUCOSE 131, ALBUMIN 2.6, GLOBULIN 4.7. URINE AND BLOOD CULTURES ARE PENDING. TODAY, WE WILL CONTINUE WITH IV ANTIBIOTICS, IV LASIX, RESPIRATORY TREATMENTS, AND CURRENT PLAN OF CARE. WE PLAN TO FOLLOW UP WITH AM LABS AND CHEST XRAY AND CONTINUE TO MONITOR. - Past Medical Family Social History Past Med/Fam/Surg Hx: No changes since H&P Allergies: Allergies codeine Allergy (Verified 12/09/17 20:38) - Review of Systems ROS: No change since H&P - Vital Signs and I&O's Vital Signs: Temperature 98.6 F Pulse Rate [Right Brachial] 90 Pulse Rate [Left Brachial] 85 Pulse Rate 73 Respiratory Rate 22 Blood Pressure [Left Arm] 160/80 Blood Pressure [Right Arm] 119/71 Blood Pressure 152/72 O2 Sat by Pulse Oximetry 92 Intake and Output: Intake & Output 03/25/18 03/26/18 03/27/18 03/28/18 11:59 11:59 11:59 11:59 Intake Total 340 / 340 1080 / 1080 600 / 600 Output Total 1250 / 1250 1350 / 1350 350 / 350 Balance -910 / -910 -270 / -270 250 / 250 - Physical Exam Oriented: Person Eyes: Normal Ear: Normal Nose: Normal Throat: Normal Respiratory: Generalized, Wheezes Cardiovascular: Normal, Edema. negative: S3, S4, Murmur : Normal Auscultation: Bowel Sounds: Normal, Increased (LOWER EXTREMITY EDEMA ) Palpation: Normal Tenderness: Suprapubic. negative: Rebound, Guarding, Rigidity Skin: Normal Musculoskeletal: Normal Psychiatric: Normal Mood Description: Calm Affect: Normal Speech Pattern: Clear - Laboratory and Diagnostics Result Diagrams: 03/27/18 05:10 03/27/18 05:10 Labs: 03/25/18 14:34 Urine,Catheterized Urine Culture - Final 03/25/18 14:43 Blood Blood Culture - Preliminary 03/25/18 14:15 Blood Blood Culture - Preliminary Laboratory WBC 7.8 X10^3/uL (3.6-10.0) 03/27/18 05:10 RBC 3.90 X10^6/uL (3.5-5.4) 03/27/18 05:10 Hgb 11.0 g/dL (12.0-16.0) L 03/27/18 05:10 Hct 33.4 % (36.0-47.0) L 03/27/18 05:10 MCV 85.6 fL (80.0-100.0) 03/27/18 05:10 MCH 28.3 pg (27.0-34.0) 03/27/18 05:10 MCHC 33.0 g/dL (33.0-35.0) 03/27/18 05:10 RDW 16.1 % (11.6-16.5) 03/27/18 05:10 Plt Count 169 X10^3/uL (150.0-450.0) 03/27/18 05:10 MPV 9.3 fL (7.4-11.0) 03/27/18 05:10 Neut % (Auto) 65.3 % (42.0-75.0) 03/27/18 05:10 Lymph % (Auto) 16.7 % (21.0-51.0) L 03/27/18 05:10 [place] % (Auto) 15.8 % (0.0-13.0) H 03/27/18 05:10 Eos % (Auto) 1.9 % (0.9-2.9) 03/27/18 05:10 Baso % (Auto) 0.3 % (0.2-1.0) 03/27/18 05:10 Neut # (Auto) 5.1 x10^3/uL (2.2-4.8) H 03/27/18 05:10 Lymph # (Auto) 1.3 X10^3/uL (1.3-2.9) 03/27/18 05:10 [place] # (Auto) 1.2 x10^3/uL (0.3-0.8) H 03/27/18 05:10 Eos # (Auto) 0.1 x10^3/uL (0.0-0.2) 03/27/18 05:10 Baso # (Auto) 0.0 X10^3/uL (0.0-0.1) 03/27/18 05:10 Absolute Nucleated RBC 0.0 /100WBC 03/27/18 05:10 D-Dimer 1410 ng/mL (0-400) H* 03/25/18 14:15 Sodium 137 mmol/L (136-145) 03/27/18 05:10 Corrected Sodium 137 mmol/L (136-145) 03/27/18 05:10 Potassium 4.0 mmol/L (3.5-5.1) 03/27/18 05:10 Chloride 102 mmol/L (98-107) 03/27/18 05:10 Carbon Dioxide 25.4 mmol/L (21-32) 03/27/18 05:10 BUN 22 mg/dL (7-18) H 03/27/18 05:10 Creatinine 0.64 mg/dL (0.55-1.02) 03/27/18 05:10 Est GFR (MDRD) Af Amer > 60 (>60) 03/27/18 05:10 Est GFR (MDRD) Non-Af > 60 (>60) 03/27/18 05:10 Glucose 115 mg/dL (65-99) H 03/27/18 05:10 Lactic Acid 1.3 mmol/L (0.4-2.0) 03/25/18 14:15 Calcium 8.6 mg/dL (8.5-10.1) 03/27/18 05:10 Corrected Calcium 10.0 mg/dL (8.5-10.1) 03/27/18 05:10 Magnesium 2.3 mg/dL (1.7-2.9) 03/27/18 05:10 Total Bilirubin 0.30 mg/dL (0.2-1.0) 03/27/18 05:10 AST 28 Units/L (15-37) 03/27/18 05:10 ALT 17 Units/L (12-78) 03/27/18 05:10 Alkaline Phosphatase 85 Units/L (46-116) 03/27/18 05:10 Total Protein 6.6 g/dL (6.4-8.2) 03/27/18 05:10 Albumin 2.3 g/dL (3.4-5.0) L 03/27/18 05:10 Globulin 4.3 g/dL (2.5-4.5) 03/27/18 05:10 Albumin/Globulin Ratio 0.5 Ratio (1.1-2.1) L 03/27/18 05:10 Specimen Type Catherized urine 03/25/18 14:34 Urine Color Yellow (YELLOW) 03/25/18 14:34 Urine Appearance Cloudy (CLEAR) 03/25/18 14:34 Urine pH 6.5 (5.0 - 8.0) 03/25/18 14:34 Ur Specific [place] 1.015 (1.000-1.030) 03/25/18 14:34 Urine Protein 2+ (NEGATIVE) 03/25/18 14:34 Urine Glucose (UA) 1+ (NEGATIVE) 03/25/18 14:34 Urine Ketones Negative (NEGATIVE) 03/25/18 14:34 Urine Occult Blood 5+ (NEGATIVE) 03/25/18 14:34 Urine Nitrite Negative (NEGATIVE) 03/25/18 14:34 Urine Bilirubin Negative (NEGATIVE) 03/25/18 14:34 Urine Urobilinogen 1+ (NORMAL) 03/25/18 14:34 Ur Leukocyte Esterase 1+ (NEGATIVE) 03/25/18 14:34 Urine RBC Tntc /HPF (NONE SEEN) 03/25/18 14:34 Urine WBC 10-20 /HPF (NONE SEEN) 03/25/18 14:34 Ur Squamous Epith Cells Rare /HPF (NEGATIVE) 03/25/18 14:34 Amorphous Sediment Trace /HPF (NEGATIVE) 03/25/18 14:34 Urine Bacteria Trace /HPF (NEGATIVE) 03/25/18 14:34 Urine Yeast Few /HPF (NEGATIVE) 03/25/18 14:34 Ur Culture Indicated? Yes/culture set up 03/25/18 14:34 - Plan (1) UTI (urinary tract infection) Status: Acute Qualifiers: Urinary tract infection type: site unspecified Hematuria presence: without hematuria Qualified Code(s): N39.0 - Urinary tract infection, site not specified Plan: CIPRO 400MG IV Q12H, CONTINUE TO MONITOR (2) CHF (congestive heart failure) Status: Acute Qualifiers: Heart failure type: unspecified Heart failure chronicity: unspecified Qualified Code(s): I50.9 - Heart failure, unspecified Plan: LASIX 20MG IV BID, RESPIRATORY TX, SUPPLEMENTAL OXYGEN, MONITOR CHEST XRAY (3) Respiratory failure with hypoxia Status: Acute Qualifiers: Chronicity: acute Qualified Code(s): J96.01 - Acute respiratory failure with hypoxia Plan: LASIX 20MG IV BID, RESPIRATORY TX, SUPPLEMENTAL OXYGEN, MONITOR CHEST XRAY (4) COPD (chronic obstructive pulmonary disease) Status: Chronic Qualifiers: COPD type: COPD with acute lower respiratory infection Qualified Code(s): J44.0 - Chronic obstructive pulmonary disease with acute lower respiratory infection Plan: LASIX 20MG IV BID, RESPIRATORY TX, SUPPLEMENTAL OXYGEN, MONITOR CHEST XRAY
[2018-03-27] MEDS: DIFLUCAN 200 MG IV PREMIX* 200 MG/100 ML BAG IV SCH (21:49)
[2018-03-28] MEDS: DUONEB 0.5 MG/3 MG IN SCH ×3 (01:00→08:31)
[2018-03-28] MEDS: MINERAL OIL PO SCH (01:15)
[2018-03-28 06:03] LABS: BASOPHILS % (AUTO) 0.5 % (0.2-1.0); EOSINOPHILS # (AUTO) 0.2 x10^3/uL (0.0-0.2); EOSINOPHILS % (AUTO) 2.3 % (0.9-2.9); HEMATOCRIT 34.6 % (36.0-47.0); HEMOGLOBIN 11.3 g/dL (12.0-16.0); LYMPHOCYTES # (AUTO) 1.3 X10^3/uL (1.3-2.9); LYMPHOCYTES % (AUTO) 17.3 % (21.0-51.0); MEAN CORPUSCULAR HEMOGLOBIN 27.7 pg (27.0-34.0); MEAN CORPUSCULAR HGB CONC 32.7 g/dL (33.0-35.0); MEAN CORPUSCULAR VOLUME 84.7 fL (80.0-100.0); MEAN PLATELET VOLUME 8.9 fL (7.4-11.0); MONOCYTES # (AUTO) 1.1 x10^3/uL (0.3-0.8); NEUTROPHILS # (AUTO) 4.7 x10^3/uL (2.2-4.8); NEUTROPHILS % (AUTO) 64.9 % (42.0-75.0); PLATELET COUNT 193 X10^3/uL (150.0-450.0); RED BLOOD COUNT 4.09 X10^6/uL (3.5-5.4); WHITE BLOOD COUNT 7.2 X10^3/uL (3.6-10.0)
[2018-03-28 06:34] LABS: ALANINE AMINOTRANSFERASE 23 Units/L (12-78); ALBUMIN 2.3 g/dL (3.4-5.0); ALKALINE PHOSPHATASE 117 Units/L (46-116); ASPARTATE AMINO TRANSFERASE 29 Units/L (15-37); BLOOD UREA NITROGEN 18 mg/dL (7-18); CALCIUM 8.8 mg/dL (8.5-10.1); CARBON DIOXIDE 28.9 mmol/L (21-32); CHLORIDE 98 mmol/L (98-107); COR CA(FOR HYPOALB) 10.2 mg/dL (8.5-10.1); COR NA(FOR HYPERGLY) 135 mmol/L (136-145); CREATININE 0.68 mg/dL (0.55-1.02); SODIUM 135 mmol/L (136-145); TOTAL PROTEIN 6.9 g/dL (6.4-8.2); eGFR NON BLACK RACES > 60 (>60)
[2018-03-28] MEDS ORDERED: LEXAPRO ONE (08:29)
[2018-03-28] MEDS: DIFLUCAN 200 MG IV PREMIX* 200 MG/100 ML BAG IV SCH (10:09)
[2018-03-28] MEDS: CIPRO IV 400 MG PREMIX* 400 MG/200 ML IV.SOLN. IV SCH (10:09)
[2018-03-28] MEDS: LEXAPRO PO SCH (10:10)
[2018-03-28] MEDS: COLACE CAP 100 MG PO SCH (10:10)
[2018-03-28] MEDS: COREG TAB 3.125 MG PO SCH (10:11)
[2018-03-28] MEDS: MICRO K EXTEN CAP 10 MEQ PO SCH (10:11)
[2018-03-28] MEDS: LASIX IVP SCH (10:12)
[2018-03-28] MEDS: MIRALAX POWDER (1 DOSE 17 G) PO SCH (10:22)
[2018-03-28] MEDS: ZESTRIL TAB 10 MG PO SCH (10:22)
[2018-03-28] MEDS: PLAVIX PO SCH (10:23)
[2018-03-28 12:29] VITALS: BP 123/64
== END 2018-03-28 13:30 | DRG 689 ==
LOC: ER 14:04 → MED/SURG 17:17
PROVIDERS: ADMIT Internal Medicine; ATTEND Internal Medicine
DX: J96.01 Acute respiratory failure with hypoxia; I11.0 Hypertensive heart disease with heart failure; Z89.611 Acquired absence of right leg above knee; R79.1 Abnormal coagulation profile; N39.0 Urinary tract infection, site not specified; F02.80 Dementia in other diseases classified elsewhere, unspecified severity, without behavioral disturbance, psychotic disturbance, mood disturbance, and anxiety; J44.0 Chronic obstructive pulmonary disease with (acute) lower respiratory infection; I50.9 Heart failure, unspecified; J81.1 Chronic pulmonary edema; J44.9 Chronic obstructive pulmonary disease, unspecified; G30.8 Other Alzheimer's disease; F20.89 Other schizophrenia
CPT/HCPCS: 36415; 51701; 51702; 71010; 71045; 71275; 80053; 81001; 83605; 83735; 85025; 85378; 87040; 87086; 94640; 94760; 96365; 96374; 96375; 99283; 99284; A4216; A4222; J0744; J1450; J1940; J3475; J3490; J7030; J7620